=== PATIENT | female | born 1960 | race Caucasian/White ===

== ENCOUNTER 2016-09-21 14:59 | Observation (INO) | payer BC ==
[2016-09-21] MEDS ORDERED: MECLIZINE 12.5 MG TAB PO STA (15:53)
[2016-09-21] MEDS ORDERED: DIAZEPAM 5 MG/ML 2 ML SYRINGE IVP STA (15:53)
[2016-09-21] MEDS ORDERED: SODIUM CHLORIDE 0.9% 500 ML IV STA (15:53)
[2016-09-21] MEDS ORDERED: KETOROLAC 30 MG/ML 1 ML VIAL IVP STA (15:54)
--- NOTE | 2016-09-21 16:22 | ED ---
General Adult HPI - General Chief complaint: Headache Stated complaint: headache/dizzy/high blood pressure Time Seen by Provider: 09/21/16 15:44 Source: patient, RN notes reviewed Mode of arrival: ambulatory Limitations: no limitations - History of Present Illness Initial comments: this a 55-year-old female presents emergency Department chief complaint headache , dizziness, elevated blood pressure. Patient states started earlier today with a generalized headache and felt dizzy. Patient states she's had, dizzy spells past has been told that she has vertigo. Patient states today she no symptoms worsen worse with movement and she felt that she may pass out. Patient states that she was at work so checked her blood pressure and it was elevated 170-180 systolic. Patient states that she is better at rest. Patient states that she's had problems with dizziness and has been found to have a low heart rate. 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 Patient denies any chest pain or shortness breath this time. Denies any nausea vomiting. Denies any focal weakness. - Related Data Home Medications Medication Instructions Recorded Confirmed Citalopram Hydrobromide [CeleXA] 20 mg PO HS 09/21/16 09/21/16 clonazePAM [KlonoPIN] 0.25 mg PO HS 09/21/16 09/21/16 Allergies Allergy/AdvReac Type Severity Reaction Status Date / Time No Known Allergies Allergy Verified 09/21/16 15:44 Review of Systems ROS Statement: Those systems with pertinent positive or pertinent negative responses have been documented in the HPI. ROS Other: All systems not noted in ROS Statement are negative. Past Medical History Additional Past Medical History / Comment(s): vertigo Past Surgical History: Back Surgery, Cholecystectomy Additional Past Surgical History / Comment(s): neck surgery Past Psychological History: Anxiety General Exam Limitations: no limitations General appearance: alert, in no apparent distress Head exam: Present: atraumatic, normocephalic, normal inspection Eye exam: Present: normal appearance, PERRL, EOMI. Absent: scleral icterus, conjunctival injection, periorbital swelling ENT exam: Present: normal exam, normal oropharynx, mucous membranes moist Neck exam: Present: normal inspection, full ROM. Absent: tenderness, meningismus, lymphadenopathy Respiratory exam: Present: normal lung sounds bilaterally. Absent: respiratory distress, wheezes, rales, rhonchi, stridor Cardiovascular Exam: Present: normal rhythm, bradycardia, normal heart sounds. Absent: systolic murmur, diastolic murmur, rubs, gallop, clicks Neurological exam: Present: alert, oriented X3, CN II-XII intact, reflexes normal. Absent: motor sensory deficit Skin exam: Present: warm, dry, intact, normal color. Absent: rash Course Vital Signs 09/21/16 09/21/16 15:16 16:40 Temperature 99.0 F Pulse Rate 52 L 47 L Respiratory 16 17 Rate Blood Pressure 169/81 147/78 O2 Sat by Pulse 98 96 Oximetry Medical Decision Making - Lab Data Result diagrams: 09/21/16 16:28 09/21/16 16:28 Lab Results 09/21/16 09/21/16 09/21/16 Range/Units 16:28 16:28 16:28 WBC 4.7 (3.8-10.6) k/uL RBC 4.28 (3.80-5.40) m/uL Hgb 13.0 (11.4-16.0) gm/dL Hct 38.3 (34.0-46.0) % MCV 89.6 (80.0-100.0) fL MCH 30.4 (25.0-35.0) pg MCHC 33.9 (31.0-37.0) g/dL RDW 12.9 (11.5-15.5) % Plt Count 193 (150-450) k/uL Neutrophils % 53 % Lymphocytes % 35 % Monocytes % 5 % Eosinophils % 2 % Basophils % 1 % Neutrophils # 2.5 (1.3-7.7) k/uL Lymphocytes # 1.7 (1.0-4.8) k/uL Monocytes # 0.3 (0-1.0) k/uL Eosinophils # 0.1 (0-0.7) k/uL Basophils # 0.0 (0-0.2) k/uL Sodium 141 (137-145) mmol/L Potassium 4.0 (3.5-5.1) mmol/L Chloride 107 (98-107) mmol/L Carbon Dioxide 26 (22-30) mmol/L Anion Gap 8 mmol/L BUN 14 (7-17) mg/dL Creatinine 0.79 (0.52-1.04) mg/dL Est GFR (MDRD) Af Amer >60 (>60 ml/min/1.73 sqM) Est GFR (MDRD) Non-Af >60 (>60 ml/min/1.73 sqM) Glucose 82 (74-99) mg/dL Calcium 9.0 (8.4-10.2) mg/dL Total Bilirubin 1.5 H (0.2-1.3) mg/dL AST 26 (14-36) U/L ALT 35 (9-52) U/L Alkaline Phosphatase 47 (38-126) U/L Troponin I <0.012 (0.000-0.034) ng/mL Total Protein 6.9 (6.3-8.2) g/dL Albumin 4.3 (3.5-5.0) g/dL Disposition Clinical Impression: Symptomatic bradycardia, Dizziness, Near syncope Disposition: ADMITTED IP TO THIS HOSP Condition: Fair Referrals: Chrissie Castillo MD [Primary Care Provider] - 1-2 days
[2016-09-21 16:49] LABS: Basophils % (A) 1 %; CH 29.9; CHCM 33.5; Eosinophils # (A) 0.1 k/uL (0-0.7); Eosinophils % (A) 2 %; HCT 38.3 % (34.0-46.0); HDW 2.31; Luc # (Auto) 0.16; Luc % (Auto) 4; Lymphocytes # (A) 1.7 k/uL (1.0-4.8); Lymphocytes % (A) 35 %; MCH 30.4 pg (25.0-35.0); MCHC 33.9 g/dL (31.0-37.0); MCV 89.6 fL (80.0-100.0); Mean Platelet Volume 8.2; Monocytes # (A) 0.3 k/uL (0-1.0); Monocytes % (A) 5 %; Neutrophils # (A) 2.5 k/uL (1.3-7.7); Neutrophils % (A) 53 %; RBC 4.28 m/uL (3.80-5.40); RDW 12.9 % (11.5-15.5); WBC 4.7 k/uL (3.8-10.6); WBC (Perox) 4.47
[2016-09-21 16:53] LABS: ALT 35 U/L (9-52); AST 26 U/L (14-36); Alkaline Phosphatase 47 U/L (38-126); Anion Gap 8 mmol/L; Blood Urea Nitrogen 14 mg/dL (7-17); Carbon Dioxide 26 mmol/L (22-30); Chloride 107 mmol/L (98-107); Glucose 82 mg/dL (74-99); Non-African American GFR(MDRD) >60 (>60 ml/min/1.73 sqM); Sodium 141 mmol/L (137-145); Total Bilirubin 1.5 mg/dL (0.2-1.3); Total Protein 6.9 g/dL (6.3-8.2)
--- NOTE | 2016-09-21 17:14 | CT ---
EXAMINATION TYPE: CT brain wo con DATE OF EXAM: 09/21/2016 COMPARISON: NONE HISTORY: Headache CT DLP: mGycm Automated exposure control for dose reduction was used. FINDINGS: Ventricles of normal size. There is no mass effect nor midline shift. There is no sign of intracrania l hemorrhage. The calvarium is intact. IMPRESSION: NORMAL UNENHANCED HEAD CT SCAN.
[2016-09-21] MEDS ORDERED: NALOXONE 0.4 MG/ML 1 ML VIAL IV PRN (17:39)
[2016-09-21] MEDS: clonazePAM 0.5 MG TAB PO SCH (22:57)
[2016-09-21] MEDS: CITALOPRAM HYDROBROMIDE 20 MG TAB PO SCH (23:18)
[2016-09-21] MEDS: SODIUM CHLORIDE 0.9% 1,000 ML IV SCH (23:19)
[2016-09-21] MEDS ORDERED: TEMAZEPAM 15 MG CAP PO PRN (23:20)
[2016-09-21] MEDS ORDERED: ALPRAZolam 0.25 MG TAB PO PRN (23:20)
[2016-09-21] MEDS ORDERED: hydrALAZINE HCL 20 MG/ML 1 ML VIAL IVP PRN (23:22)
[2016-09-22] MEDS ORDERED: MECLIZINE 12.5 MG TAB PO PRN (05:28)
[2016-09-22 06:21] LABS: Basophils # (A) 0.1 k/uL (0-0.2); Basophils % (A) 1 %; CH 30.2; CHCM 32.7; Eosinophils # (A) 0.1 k/uL (0-0.7); Eosinophils % (A) 4 %; HDW 2.28; HGB 12.7 gm/dL (11.4-16.0); Luc # (Auto) 0.12; Luc % (Auto) 3; Lymphocytes # (A) 1.5 k/uL (1.0-4.8); Lymphocytes % (A) 41 %; MCH 30.2 pg (25.0-35.0); MCHC 32.5 g/dL (31.0-37.0); MCV 92.8 fL (80.0-100.0); Mean Platelet Volume 8.6; Monocytes # (A) 0.3 k/uL (0-1.0); Monocytes % (A) 7 %; Neutrophils # (A) 1.6 k/uL (1.3-7.7); Neutrophils % (A) 43 %; RDW 13.4 % (11.5-15.5); WBC 3.7 k/uL (3.8-10.6); WBC (Perox) 3.79
[2016-09-22] MEDS: LISINOPRIL 10 MG TAB PO SCH ×3 (06:25→20:14)
[2016-09-22] MEDS: PANTOPRAZOLE 40 MG TABLET PO SCH (06:29)
[2016-09-22 06:34] LABS: Anion Gap 5 mmol/L; Blood Urea Nitrogen 14 mg/dL (7-17); Calcium 8.7 mg/dL (8.4-10.2); Carbon Dioxide 28 mmol/L (22-30); Chloride 110 mmol/L (98-107); Cholesterol 130 mg/dL (<200); Glucose 87 mg/dL (74-99); HDL Cholesterol 61 mg/dL (40-60); Non-African American GFR(MDRD) >60 (>60 ml/min/1.73 sqM); Potassium 4.4 mmol/L (3.5-5.1); Sodium 143 mmol/L (137-145)
--- NOTE | 2016-09-22 06:59 | XR ---
EXAMINATION TYPE: XR chest 2V DATE OF EXAM: 09/22/2016 HISTORY: syncope. REFERENCE: NONE. FINDINGS: The lungs are overinflated. There is interstitial change throughout the lungs. The heart is not enlarged. Pleural spaces are abbi r. Note is made of a previous ACDF in the lower cervical spine. IMPRESSION: 1. COPD. 2. INTERSTITIAL LUNG DISEASE. 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
[2016-09-22] MEDS: HEPARIN SODIUM,PORCINE 5,000 UNIT/ML 1 ML VIAL SQ SCH ×2 (08:28→20:13)
--- NOTE | 2016-09-22 09:14 | P.CRDCN ---
History of Present Illness Consult date: 09/22/16 Chief complaint: Dizziness and lightheadedness History of present illness: This is a pleasant 55-year-old female patient with no significant past medical history resented to the emergency room complaining of dizziness and lightheadedness. Over the last several days she has been feeling tired and fatigued. Yesterday she was experiencing dizziness and lightheadedness without syncope. She did not have any chest pain or discomfort but she has been complaining of exertional shortness of breath. She was seen in the office a few days ago by Dr. Vidales who requested the patient to have a stress test and echocardiogram. In the ER the heart rate has been in the 30s. Earlier this morning she had an episode of sinus bradycardia with heart rate in the 30s as well. The patient is not aware of any prior cardiac history nor diabetes or hypertension or dyslipidemia. 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 History of Any Multi-Drug Resistant Organisms: None Reported Past Surgical History: Back Surgery, Cholecystectomy Additional Past Surgical History / Comment(s): neck FUSION HAS PLATE, BACK SX- LAMINECTOMY/FUSION, COLONOSCOPY Past Anesthesia/Blood Transfusion Reactions: No Reported Reaction Smoking Status: Former smoker - Past Family History Mother Family Medical History: Cancer Additional Family Medical History / Comment(s): BREAST CANCER Father Family Medical History: Cancer, Diabetes Mellitus, Hypertension Additional Family Medical History / Comment(s): MELANOMA Medications and Allergies Home Medications Medication Instructions Recorded Confirmed Type Citalopram Hydrobromide [CeleXA] 20 mg PO HS 09/21/16 09/21/16 History clonazePAM [KlonoPIN] 0.25 mg PO HS 09/21/16 09/21/16 History Allergies Allergy/AdvReac Type Severity Reaction Status Date / Time No Known Allergies Allergy Verified 09/21/16 15:44 Physical Exam Vitals: Vital Signs Temp Pulse Pulse Pulse Resp BP BP 09/22/16 08:29 40 L 40 L 16 120/72 09/22/16 04:00 96.6 F L 44 L 16 163/69 09/22/16 00:00 96.9 F L 48 L 16 116/58 09/21/16 19:30 96.9 F L 43 L 43 L 16 147/79 09/21/16 19:20 99.0 F 45 L 18 166/81 09/21/16 18:42 45 L 18 166/81 09/21/16 18:35 45 L 18 166/81 09/21/16 16:40 47 L 17 147/78 09/21/16 15:16 99.0 F 52 L 16 169/81 BP BP Pulse Ox 09/22/16 08:29 96 09/22/16 04:00 97 09/22/16 00:00 96 09/21/16 19:30 142/72 160/75 96 09/21/16 19:20 99 09/21/16 18:42 99 09/21/16 18:35 99 09/21/16 16:40 96 09/21/16 15:16 98 Intake and Output 09/21/16 09/22/16 09/22/16 22:59 06:59 14:59 Other: Weight 81.647 kg 81.647 kg - Constitutional General appearance: no acute distress - Respiratory Respiratory: bilateral: CTA - Cardiovascular Rhythm: regular Heart sounds: normal: S1, S2 Results 09/22/16 06:04 09/22/16 06:04 Cardiac Enzymes 09/21/16 09/21/16 Range/Units 16:28 16:28 AST 26 (14-36) U/L Troponin I <0.012 (0.000-0.034) ng/mL Lipids 09/22/16 Range/Units 06:04 Triglycerides 52 (<150) mg/dL Cholesterol 130 (<200) mg/dL HDL Cholesterol 61 H (40-60) mg/dL CBC 09/21/16 09/22/16 Range/Units 16:28 06:04 WBC 4.7 3.7 L (3.8-10.6) k/uL RBC 4.28 4.20 (3.80-5.40) m/uL Hgb 13.0 12.7 (11.4-16.0) gm/dL Hct 38.3 39.0 (34.0-46.0) % Plt Count 193 171 (150-450) k/uL Comprehensive Metabolic Panel 09/21/16 09/22/16 Range/Units 16:28 06:04 Sodium 141 143 (137-145) mmol/L Potassium 4.0 4.4 (3.5-5.1) mmol/L Chloride 107 110 H (98-107) mmol/L Carbon Dioxide 26 28 (22-30) mmol/L BUN 14 14 (7-17) mg/dL Creatinine 0.79 0.85 (0.52-1.04) mg/dL Glucose 82 87 (74-99) mg/dL Calcium 9.0 8.7 (8.4-10.2) mg/dL AST 26 (14-36) U/L ALT 35 (9-52) U/L Alkaline Phosphatase 47 (38-126) U/L Total Protein 6.9 (6.3-8.2) g/dL Albumin 4.3 (3.5-5.0) g/dL Current Medications Generic Name Dose Route Start Last Admin Trade Name Freq PRN Reason Stop Dose Admin Alprazolam 0.25 mg 09/21/16 23:20 Xanax PO TID PRN Anxiety Amlodipine Besylate 2.5 mg 09/23/16 09:00 Norvasc PO DAILY TEVIN Citalopram Hydrobromide 20 mg 09/21/16 22:15 09/21/16 23:18 Celexa PO 20 mg HS TEVIN Administration Clonazepam 0.25 mg 09/21/16 22:00 09/21/16 22:57 Klonopin PO 0.25 mg HS TEVIN Administration Heparin Sodium (Porcine) 5,000 unit 09/22/16 09:00 09/22/16 08:28 Heparin SQ 5,000 unit Q12HR TEVIN Administration Hydralazine HCl 10 mg 09/21/16 23:22 Apresoline IVP Q4HR PRN Blood Pressure - High Sodium Chloride 1,000 mls @ 50 mls/hr 09/21/16 18:45 09/21/16 23:19 Saline 0.9% IV 50 mls/hr .Q20H TEVIN Administration Lisinopril 10 mg 09/21/16 23:30 09/22/16 08:28 Zestril PO 10 mg BID TEVIN Administration Meclizine HCl 12.5 mg 09/22/16 05:28 Antivert PO TID PRN Vertigo Naloxone HCl 0.2 mg 09/21/16 17:39 Narcan IV Q2M PRN Opioid Reversal Pantoprazole Sodium 40 mg 09/22/16 07:30 09/22/16 06:29 Protonix PO 40 mg [id number] TEVIN Administration Temazepam 15 mg 09/21/16 23:20 Restoril PO HS PRN Insomnia Intake and Output 09/21/16 09/22/16 09/22/16 22:59 06:59 14:59 Other: Weight 81.647 kg 81.647 kg 09/22/16 06:04 09/22/16 06:04 Assessment and Plan Plan: Assessment Sinus bradycardia Abnormal EKG with nonspecific changes Hypertension Dizziness and lightheadedness Plan Start the patient on Norvasc Obtain an echocardiogram was Doppler Follow-up with serial cardiac enzymes Follow-up with the patient
[2016-09-22] MEDS ORDERED: ACETAMINOPHEN TAB 325 MG TAB PO PRN (13:33)
--- NOTE | 2016-09-22 14:05 | PN ---
DATE OF SERVICE: 09/21/2016 CHIEF COMPLIANT: Dizziness, headache and high blood pressure. HISTORY OF PRESENT ILLNESS: This 55-year-old woman with a past medical history of multiple medical problems, sleep apnea, history of vertigo, history of back surgery, history of DJD, history of anxiety and depression, being followed by Dr. Castillo in the outpatient setting. Had dizziness and lightheadedness at work and blood pressure was found to be 170 and 185 systolic and the patient taken to [facility] and admitted for further evaluation and treatment. The patient also had generalized headache. The patient did not have a syncopal episode. The patient also found to have a low heart rate. The heart rate was found to be in the 40s and 50s and the EKG done in the ER showed sinus bradycardia with some ST-T changes and UA. The CAT scan of the brain showed no acute changes. There is no history of fever or rigors. No history of chest pain or palpitation. PAST MEDICAL HISTORY: History of sleep apnea, vertigo, anxiety, depression, DJD. MEDICATIONS PRIOR TO ADMISSION: Include Klonopin 0.5 mg q.h.s., Celexa 20 mg p.o. ALLERGIES: None. FAMILY HISTORY: History of breast cancer. SOCIAL HISTORY: Previous history of smoking. No alcohol intake. REVIEW OF SYSTEMS: ENT: No diminished hearing or vision. CARDIOVASCULAR: No angina or palpitation. RESPIRATORY: No cough.. GI: No nausea. : No dysuria. NERVOUS SYSTEM: As mentioned earlier.. IMMUNOLOGY/ALLERGY: No asthma, hayfever. MUSCULOSKELETAL: As mentioned earlier. HEMATOLOGY: No history of anemia. ENDOCRINE: No history of diabetes or hypothyroidism. CONSTITUTIONAL: As mentioned earlier. PSYCHIATRIC: As mentioned earlier. PHYSICAL EXAMINATION: Alert and oriented x3. Pulse 47, blood pressure noted, respiratory rate 17, temperature 98 degrees, pulse ox 90% on 2 liters. HEENT: Conjunctivae normal. Oral mucosa moist. NECK: No jugular venous distention. No thyroid enlargement, no lymph node enlargement. CARDIOVASCULAR: S1/.S2. RESPIRATIONS: Diminished breath sounds at the bases. No rhonchi, no crackles. ABDOMEN: Soft, nontender. No mass palpable. LEGS: No edema, no swelling. NERVOUS SYSTEM: Higher function as mentioned. Moves all four limbs. No focal weakness. LYMPHATICS. No lymph node palpable in neck or axillae. SKIN: No rash. LABS: Show CBC within normal limits. Bilirubin is 1.5. ASSESSMENT: 1. Headache and dizziness with accelerated hypertension with hypertensive urgency. 2. Sinus bradycardia. 3. Anxiety and depression. 4. Sleep apnea. 5. History of vertigo. 6. History of cholecystectomy. RECOMMENDATIONS AND DISCUSSION: In this 55-year-old who presented with multiple complex medical issues, will monitor closely, continue current medication, continue to monitor, continue symptomatic treatment. Will use p.r.n. medications and continue to monitor. Otherwise, cardiology consultation. Guarded prognosis because of multiple complex medical issues. Further recommendations to follow. Will initiate lisinopril and continue to monitor. MTDD
[2016-09-22 17:01] LABS: Appearance,Urine Clear (Clear); Bilirubin,Urine Negative (Negative); Glucose,Urine (UA) Negative (Negative); Ketones,Urine Negative (Negative); Leukocyte Esterase,Urine Negative (Negative); Nitrite,Urine Negative (Negative); Protein,Urine Negative (Negative); Specific Gravity,Urine 1.005 (1.001-1.035); UA Billing (MACRO vs. MICRO) CHEM; Urobilinogen,Urine <2.0 mg/dL (<2.0)
[2016-09-22] MEDS: SODIUM CHLORIDE 0.9% 1,000 ML IV SCH (18:17)
[2016-09-22] MEDS: CITALOPRAM HYDROBROMIDE 20 MG TAB PO SCH (20:14)
[2016-09-22] MEDS: clonazePAM 0.5 MG TAB PO SCH (20:14)
[2016-09-23] MEDS: PANTOPRAZOLE 40 MG TABLET PO SCH (06:35)
--- NOTE | 2016-09-23 09:42 | PN ---
DATE OF SERVICE: 09/22/2016 This 55-year-old woman who was admitted with headache, bradycardia and hypertension is being closely monitored. No chest pain, no palpitation, no fever. The EKG shows sinus rhythm. Cardiology following the patient closely. On exam, alert and oriented x3. Pulse 39, blood pressure 147/70, respirations 16, temperature normal, pulse ox 97% on room air. HEENT: Conjunctivae normal. NECK: No JVD. CARDIOVASCULAR: S1/S2. RESPIRATORY: Diminished breath sounds especially in the bases. No rhonchi, no crackles. ABDOMEN: Soft, nontender. LEGS: No edema. NERVOUS SYSTEM: No focal deficits. LABS: Troponins are normal. TSH 2.260 normal. WBC 3.7. ASSESSMENT: 1. Headache associated with accelerated hypertension with hypertensive urgency. 2. Sinus bradycardia. 3. Anxiety and depression, not otherwise specified. 4. History of sleep apnea. 5. History of vertigo. 6. History of cholecystectomy. RECOMMENDATIONS AND DISCUSSION: Recommend to continue current medication, continue to monitor, continue symptomatic treatment. Otherwise, at this time I would recommend follow the patient closely. Norvasc has been added to the current regimen. The patient is still bradycardic but the blood pressure seems to be under control. Further recommendations to follow. MTDD
[2016-09-23 10:35] VITALS: RESP 16
[2016-09-23] MEDS: HEPARIN SODIUM,PORCINE 5,000 UNIT/ML 1 ML VIAL SQ SCH ×2 (10:36→21:21)
[2016-09-23] MEDS: amLODIPine 2.5 MG TAB PO SCH (10:36)
[2016-09-23] MEDS: LISINOPRIL 5 MG TAB PO SCH ×2 (10:36→21:21)
--- NOTE | 2016-09-23 13:34 | P.PN ---
Subjective Principal diagnosis: Sinus bradycardia This is a pleasant 55-year-old female patient with no significant past medical history resented to the emergency room complaining of dizziness and lightheadedness. Over the last several days she has been feeling tired and fatigued. Yesterday she was experiencing dizziness and lightheadedness without syncope. She did not have any chest pain or discomfort but she has been complaining of exertional shortness of breath. In the ER the heart rate has been in the 30s. The patient continues to have a resting heart rate in the 40s and earlier this morning was in the 30s. An echocardiogram was ordered and still pending. We'll follow-up with that. If the patient's heart rate did not recover she might need to have permanent pacemaker implantation. Objective - Vital Signs Vital signs: Vital Signs Temp 97.6 F 09/23/16 09:00 Pulse 36 L 09/23/16 12:00 Resp 16 09/23/16 12:00 BP 125/69 09/23/16 12:00 Pulse Ox 98 09/23/16 12:00 Intake & Output 09/22/16 09/23/16 09/23/16 18:59 06:59 18:59 Intake Total 1654 700 Output Total 750 Balance 1654 -750 700 Weight 85 kg Intake: Intake, IV Titration 200 Amount Sodium Chloride 0.9% 1, 200 000 ml @ 50 mls/hr IV . Q20H TEVIN Rx#:[id number] Oral 1454 700 Output: Urine 750 Other: # Voids 1 1 2 - Constitutional General appearance: Present: no acute distress - Respiratory Respiratory: bilateral: CTA - Cardiovascular Rhythm: regular Heart sounds: normal: S1, S2 - Labs CBC & Chem 7: 09/22/16 06:04 09/22/16 06:04 Assessment and Plan Plan: This is a pleasant 55-year-old female patient was admitted to the hospital with symptomatic sinus bradycardia. We'll continue monitor the heart rate for additional 24 hours. Follow-up with the echocardiogram. And follow-up with the patient.
--- NOTE | 2016-09-23 13:57 | ECHOF ---
Referral Reason:bradycardia MEASUREMENTS -------- HEIGHT: 175.3 cm WEIGHT: 81.7 kg BP: 120/72 RVIDd: 3.2 cm (< 3.3) IVSd: 0.8 cm (0.6 - 1.1) LVIDd: 5.4 cm (3.9 - 5.3) LVPWd: 0.9 cm (0.6 - 1.1) IVSs: 1.3 cm LVIDs: 3.3 cm LVPWs: 1.3 cm LAESV Index (A-L): 24.98 ml/m Ao Diam: 3.1 cm (2.0 - 3.7) AV Cusp: 1.8 cm (1.5 - 2.6) LA Diam: 3.5 cm (2.7 - 3.8) MV EXCURSION: 15.965 mm (> 18.000) MV EF SLOPE: 105 mm/s (70 - 150) EPSS: 0.6 cm MV E Cornelius: 1.24 m/s MV DecT: 234 ms MV A Cornelius: 0.99 m/s MV E/A Ratio: 1.24 RAP: 5.00 mmHg RVSP: 44.17 mmHg FINDINGS -------- Resting bradycardia (HR<60bpm). This was a technically adequate study. Overall left ventricular systolic function is normal with, an EF between 60 - 65 %. The right ventricle is normal in size and function. Normal LA size by volume 22+/-6 ml/m2. The right atrium is normal in size. Aortic valve is trileaflet and is mildly thickened. There is no evidence of aortic regurgitation. There is no evidence of aortic stenosis. The mitral valve leaflets are mildly thickened. There is trace mitral regurgitation. Mild tricuspid regurgitation present. There is mild pulmonary hypertension. The right ventricular systolic pressure, as measured by Doppler, is 44.17mmHg. The pulmonic valve is normal. The aortic root size is normal. The inferior vena cava is mildly dilated. The pericardium is normal. There is no pericardial effusion. CONCLUSIONS -------- 1. Resting bradycardia (HR<60bpm). 2. The right ventricular systolic pressure, as measured by Doppler, is 44.17mmHg. 3. The pulmonic valve is normal. 4. The aortic root size is normal. 5. The inferior vena cava is mildly dilated. 6. There is no pericardial effusion. 7. This was a technically adequate study. 8. Overall left ventricular systolic function is normal with, an EF between 60 - 65 %. 9. Normal LA size by volume 22+/-6 ml/m2. 10. Aortic valve is trileaflet and is mildly thickened. 11. The mitral valve leaflets are mildly thickened. 12. There is trace mitral regurgitation. 13. Mild tricuspid regurgitation present. 14. There is mild pulmonary hypertension. TOWER CLEANER: Sandeep Tobin RDCS
[2016-09-23] MEDS: CITALOPRAM HYDROBROMIDE 20 MG TAB PO SCH (21:21)
[2016-09-23] MEDS: clonazePAM 0.5 MG TAB PO SCH (21:23)
[2016-09-24] MEDS: PANTOPRAZOLE 40 MG TABLET PO SCH (06:30)
[2016-09-24] MEDS: LISINOPRIL 5 MG TAB PO SCH (08:52)
[2016-09-24] MEDS: HEPARIN SODIUM,PORCINE 5,000 UNIT/ML 1 ML VIAL SQ SCH (08:52)
[2016-09-24] MEDS: amLODIPine 2.5 MG TAB PO SCH (08:52)
--- NOTE | 2016-09-24 11:39 | PN ---
DATE OF SERVICE: 09/23/2016 This 55-year-old woman was admitted with headache, and accelerated hypertension , hypertensive urgency being closely monitored. The patient had significant bradycardia also. Last night the heart rate went up to 30s, which is sinus in nature. Cardiology is following the patient closely. 2-D echo has been recommended. PHYSICAL EXAM: The patient is alert and oriented x2. The pulse is 36, blood pressure 120/65, respirations 16, temperature 97.6, pulse ox 985 on room air. HEENT: Conjunctivae normal. NECK: No jugular venous distention. CARDIOVASCULAR: S1, S2. RESPIRATORY: Breath sounds are diminished at the bases. No rhonchi, no crackles. ABDOMEN: Soft, nontender. LEGS: No edema, no swelling. NEUROLOGIC: No focal deficits. LABS: WBC 3.7, otherwise 6.1, UA noted. ASSESSMENT: 1. Headache associated with accelerated hypertension with hypertension urgency. 2. Sinus bradycardia. 3. Anxiety and depression, not otherwise specified. 4. History of sleep apnea. 5. History of vertigo. 6. History of cholecystectomy. RECOMMENDATIONS AND DISCUSSION: I recommend to continue the current medications , continue with monitoring and symptomatic treatment. Closely follow with Cardiology. Increase ambulation. Further recommendations are to follow. The blood pressure is improving at this time. MTDD
[2016-09-24 12:39] VITALS: BP 132/81; PULSE 53; TEMP 96.9
--- NOTE | 2016-09-24 16:12 | P.PN ---
Subjective Principal diagnosis: Sinus Bradycardia This is a 55-year-old female with no significant past medical history who presented to the hospital with dizziness and lightheadedness. She was found to be bradycardic. At rest her patient's heart rate stays in the 40s. She underwent a stress test today, her rate up into the 160s patient asymptomatic. On return to the stress test she was ambulating in the hallway and the heart rate consistently stayed in the 70s to 80s. Excellent chronotropic response. Echo revealed normal left ventricular systolic function. Objective - Vital Signs Vital signs: Vital Signs Temp 96.9 F L 09/24/16 12:00 Pulse 53 L 09/24/16 12:00 Resp 16 09/24/16 12:00 BP 132/81 09/24/16 12:00 Pulse Ox 95 09/24/16 12:00 Intake & Output 09/23/16 09/24/16 09/24/16 18:59 06:59 18:59 Intake Total 700 Output Total 0 Balance 700 0 Weight 83.7 kg Intake: Oral 700 Output: Urine 0 Other: # Voids 2 1 2 - Exam PHYSICAL EXAMINATION: HEENT: [Head is atraumatic, normocephalic. Pupils equal, round. Neck is supple. There is no elevated jugular venous pressure.] HEART EXAMINATION: [Heart S1, S2 normal. No murmur or gallop heard.] CHEST EXAMINATION:[ Lungs are clear to auscultation and precussion. No chest wall tenderness is noted on palpation or with deep breathing.] ABDOMEN: [ Soft, nontender. Bowel sounds are heard. No organomegaly noted]. EXTREMITIES:[ 2+ peripheral pulses with no evidence of peripheral edema and no calf tenderness noted]. NEUROLOGIC [patient is awake, alert and oriented -3.] . - Labs CBC & Chem 7: 09/22/16 06:04 09/22/16 06:04 Assessment and Plan (1) Dizziness Status: Acute (2) Near syncope Status: Acute (3) Symptomatic bradycardia Status: Acute Plan: Cardiology's perspective, patient may be able to be discharged home today. Follow-up appointment will be made in the office post discharge. DNP note has been reviewed, I agree with a documented findings and plan of care. Patient was seen and examined.
--- NOTE | 2016-09-24 16:25 | P.DS ---
Providers Date of admission: 09/21/16 17:35 Attending physician: Yassine Maria Consults: 09/21/16 17:41 Consult Physician Urgent Consulting Provider: [facility] Consult Reason/Comments: bradycardia Do you want consulting provider notified?: Yes Primary care physician: Chrissie [facility] Course: 55-year-old female who comes in the hospital with the confusion and dizziness. Patient has a diagnosis of essential hypertension depression and anxiety. Patient was admitted to the hospital was noted to have a heart rate in the 30s. Patient was symptomatic of the heart rate hence was admitted to the hospital for ongoing care Patient denies taking any any rate limiting medications. Patient states that her recent change in medications include decreasing dose of clonidine and Celexa. States that she has had a previous episode 3 years ago after her cholecystectomy where patient was observed for 24 hours for low heart rate During the hospitalization patient was monitored on the telemetry was noted to have asymptomatic bradycardia especially worse at night However at this time she was made to ambulate during the hospitalization and was able to note chronotropic Activity patient did undergo a stress test was able to read a target heart rate of 158 In the past patient apparently was being WORKED up with a Holter outpatient however it the was not completed due to some malfunction On the day of discharge at rest heart rate was approximately 60 bpm Heart S1-S2 heard no murmurs appreciated Abdomen soft nontender organomegaly Lungs diminished breath sounds no rhonchi wheezing or crackles Lower extremity is no edema noted Discharge diagnoses #1 bradycardia with the episodic symptomatic features no pauses noted does not meet criteria for pacemaker #2 accelerated hypertension #3 history of depression #4 history of anxiety #5 suspected clinical sleep apnea Plan Patient is recommended to undergo workup for sleep study considering better control of nocturnal apneic spells wouldn't improve episodes of bradycardia Decrease Celexa to 10 mg daily Patient will be discharged home in a stable condition Patient Condition at Discharge: Fair Plan - Discharge Summary New Discharge Prescriptions: New RX: amLODIPine [Norvasc] 2.5 mg PO DAILY #30 tab Citalopram Hydrobromide [CeleXA] 10 mg PO DAILY #30 tab RX: Lisinopril [Zestril] 10 mg PO BID #60 tab Continue RX: clonazePAM [KlonoPIN] 0.25 mg PO HS Discontinued RX: Citalopram Hydrobromide [CeleXA] 20 mg PO HS Discharge Medication List RX: clonazePAM [KlonoPIN] 0.25 mg PO HS 09/21/16 [History] Citalopram Hydrobromide [CeleXA] 10 mg PO DAILY #30 tab 09/24/16 [Rx] RX: Lisinopril [Zestril] 10 mg PO BID #60 tab 09/24/16 [Rx] RX: amLODIPine [Norvasc] 2.5 mg PO DAILY #30 tab 09/24/16 [Rx] Follow up Appointment(s)/Referral(s): Jeb Blackburn MD [STAFF PHYSICIAN] - 1 Week Chrissie Castillo MD [Primary Care Provider] - 10/01/16 10:15 am Levy Delgdao MD [STAFF PHYSICIAN] - 10/24/16 1:00 pm Patient Instructions/Handouts: Bradycardia (DC)
--- NOTE | 2016-09-24 17:23 | P.STRESS ---
- Stress Test Note Stress Test Results/Findings: Exam Performed: stress test Exam Date: 09/24/16 Reason for Exam: Dizzy Height: 5 ft 9 in Weight: 83.7 kg Protocol: Justin Stage: 2 Duration of Exercise: 8:30 Resting Heart Rate: 48 Resting Blood Pressure: 121/77 Maximum Achieved Heart Rate: 154 Maximum Achieved Blood Pressure: 178/87 85% PMHR: 139 100% PMHR: 164 METS: 10.3 Technologist Comment: Stress Test Results/Findings: Resting EKG shows a normal sinus rhythm with normal VT interval and QRS duration and normal ST-T days. J-point depression with upsloping ST segments are noted. Patient did not complain of any anginal pain during the test. Occasional PVCs were noted. Final impression distress EKG shows eqivocal upsloping ST segment changes not diagnostic of ischemia. Asymptomatic did not complain of any anginal pain during the test. Occasional PVCs were noted.
--- NOTE | 2016-09-25 07:49 | EST ---
Stress Test Results/Findings: Exam Performed: stress test Exam Date: 09/24/16 Reason for Exam: Dizzy Height: 5 ft 9 in Weight: 83.7 kg Protocol: Justin Stage: 2 Duration of Exercise: 8:30 Resting Heart Rate: 48 Resting Blood Pressure: 121/77 Maximum Achieved Heart Rate: 154 Maximum Achieved Blood Pressure: 178/87 85% PMHR: 139 100% PMHR: 164 METS: 10.3 Technologist Comment: Stress Test Results/Findings: Resting EKG shows a normal sinus rhythm with normal AK interval and QRS duration and normal ST-T days. J-point depression with upsloping ST segments are noted. Patient did not complain of any anginal pain during the test. Occasional PVCs were noted. Final impression distress EKG shows eqivocal upsloping ST segment changes not diagnostic of ischemia. Asymptomatic did not complain of any anginal pain during the test. Occasional PVCs were noted. MTDD
== END 2016-09-24 16:39 | disposition home or self-care (01) ==
LOC: EC 14:59 → 6SEL 17:35 → INTOOBSV 17:35
PROVIDERS: ADMIT Hospitalist; ATTEND Hospitalist
DX: R00.1 Bradycardia, unspecified (principal); I16.0 Hypertensive urgency; R55 Syncope and collapse; I10 Essential (primary) hypertension; F32.9 Major depressive disorder, single episode, unspecified; F41.9 Anxiety disorder, unspecified; R51 Headache; R01.1 Cardiac murmur, unspecified; G47.30 Sleep apnea, unspecified; R94.31 Abnormal electrocardiogram [ECG] [EKG]; Z99.89 Dependence on other enabling machines and devices; Z98.1 Arthrodesis status; Z87.891 Personal history of nicotine dependence; Z82.49 Family history of ischemic heart disease and other diseases of the circulatory system; Z79.899 Other long term (current) drug therapy; Z90.49 Acquired absence of other specified parts of digestive tract
CPT/HCPCS: 96361 ×3; 96372 ×3; 96374; 96375; 99285; 36415; 93005; 93017; 93306; 84439; 80061; 80053; 80048; 84443; 84484 ×2; 85025 ×2; 81003; 71020; 70450; G0378 ×4; J1644 ×3; J3360; J1885

== ENCOUNTER 2016-10-09 20:22 | Observation (INO) | payer BC ==
[2016-10-09 21:23] LABS: Basophils % (A) 1 %; CH 31.1; CHCM 34.1; Eosinophils # (A) 0.2 k/uL (0-0.7); Eosinophils % (A) 3 %; HCT 39.7 % (34.0-46.0); HDW 2.27; HGB 13.1 gm/dL (11.4-16.0); Luc # (Auto) 0.21; Luc % (Auto) 4; Lymphocytes # (A) 2.4 k/uL (1.0-4.8); Lymphocytes % (A) 44 %; MCH 30.1 pg (25.0-35.0); MCHC 32.9 g/dL (31.0-37.0); MCV 91.6 fL (80.0-100.0); Mean Platelet Volume 8.4; Monocytes # (A) 0.3 k/uL (0-1.0); Monocytes % (A) 6 %; Neutrophils # (A) 2.3 k/uL (1.3-7.7); Neutrophils % (A) 42 %; RBC 4.33 m/uL (3.80-5.40); RDW 13.7 % (11.5-15.5); WBC 5.4 k/uL (3.8-10.6); WBC (Perox) 5.65
[2016-10-09 21:31] LABS: Partial Thromboplastin Time 23.9 sec (22.0-30.0); Prothrombin Time 10.3 sec (9.0-12.0)
[2016-10-09 21:32] LABS: ALT 35 U/L (9-52); AST 25 U/L (14-36); Alkaline Phosphatase 60 U/L (38-126); Anion Gap 10 mmol/L; Blood Urea Nitrogen 14 mg/dL (7-17); Calcium 9.4 mg/dL (8.4-10.2); Carbon Dioxide 25 mmol/L (22-30); Chloride 106 mmol/L (98-107); Glucose 79 mg/dL (74-99); Non-African American GFR(MDRD) >60 (>60 ml/min/1.73 sqM); Potassium 3.9 mmol/L (3.5-5.1); Sodium 141 mmol/L (137-145); Total Bilirubin 0.9 mg/dL (0.2-1.3); Total Protein 7.2 g/dL (6.3-8.2)
--- NOTE | 2016-10-09 21:38 | ED ---
Dizziness HPI - General Chief Complaint: Dizziness Stated Complaint: Dizzy/Low pulse Time Seen by Provider: 10/09/16 20:41 Source: patient Mode of arrival: wheelchair Limitations: no limitations - History of Present Illness Initial Comments: This is a 56-year-old female with a history of hypertension and bradycardia presents emergency department for lightheadedness. She states that it's been going on for the last 24 hours. She feels that she is going to pass out. She has not had a syncopal episode. She was recently admitted for the same and found to have some symptomatic sinus bradycardia. She had full cardiac workup performed however was not recommended that she receive a pacemaker at that time. She states that she is follow up with per week since then and she's had her Norvasc decreased to 10 mg daily. She also had her Klonopin and Celexa decreased as well. She came in today because she was having persistent lightheadedness today. She went to an urgent care who noted sinus bradycardia and sent her here. She denies any chest pain. No nausea or vomiting. No other complaints. - Related Data Home Medications Medication Instructions Recorded Confirmed clonazePAM [KlonoPIN] 0.25 mg PO HS 09/21/16 10/09/16 Citalopram Hydrobromide [CeleXA] 10 mg PO HS 10/09/16 10/09/16 Lisinopril [Zestril] 10 mg PO QAM 10/09/16 10/09/16 amLODIPine [Norvasc] 2.5 mg PO QAM 10/09/16 10/09/16 Allergies Allergy/AdvReac Type Severity Reaction Status Date / Time No Known Allergies Allergy Verified 10/09/16 20:36 Review of Systems ROS Statement: Those systems with pertinent positive or pertinent negative responses have been documented in the HPI. ROS Other: All systems not noted in ROS Statement are negative. 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, bradycardia History of Any Multi-Drug Resistant Organisms: None Reported Past Surgical History: Back Surgery, Cholecystectomy Additional Past Surgical History / Comment(s): neck FUSION HAS PLATE, BACK SX- LAMINECTOMY/FUSION, COLONOSCOPY Past Anesthesia/Blood Transfusion Reactions: No Reported Reaction Past Psychological History: Anxiety, Depression Smoking Status: Former smoker Past Alcohol Use History: None Reported Past Drug Use History: None Reported - Past Family History Mother Family Medical History: Cancer Additional Family Medical History / Comment(s): BREAST CANCER Father Family Medical History: Cancer, Diabetes Mellitus, Hypertension Additional Family Medical History / Comment(s): MELANOMA General Exam - General Exam Comments Initial Comments: Constitutional: Awake alert Appears comfortable Head: Normocephalic atraumatic Eyes: no conjunctival injection No scleral icterus EOMI Neck: No JVD Supple Heart: Bradycardia with regular rhythm normal S1-S2 no murmurs Lungs: Clear to auscultation bilaterally No wheezing No rales Abdomen: Soft nondistended nontender Extremities: Non edematous DP pulses intact Radial pulses intact Neuro: A&Ox3 No focal neurologic deficits Psych: Appropriate mood and affect Limitations: no limitations Course Vital Signs 10/09/16 20:33 Temperature 97.5 F L Pulse Rate 49 L Respiratory 16 Rate Blood Pressure 187/90 O2 Sat by Pulse 98 Oximetry EKG Findings - EKG Comments: EKG Findings:: EKG showing sinus bradycardia with a rate of 50. No abnormal ST segment changes or T-wave inversions. QTC is 432. Other intervals are normal. No ectopy. Medical Decision Making - Medical Decision Making Is a 56-year-old female who presents emergency department for lightheadedness. She was found to be in sinus bradycardia with rates in the 30s at times. She has been persistently in the 40s. Labs are reviewed and unremarkable. Patient was recently hospitalized for this however due to her recurrent symptomatology requires monitoring in the hospital and cardiac evaluation again. Dr. Maria accepts the admission. - Lab Data Result diagrams: 10/09/16 20:50 10/09/16 20:50 Lab Results 10/09/16 10/09/16 10/09/16 Range/Units 20:50 20:50 20:50 WBC 5.4 (3.8-10.6) k/uL RBC 4.33 (3.80-5.40) m/uL Hgb 13.1 (11.4-16.0) gm/dL Hct 39.7 (34.0-46.0) % MCV 91.6 (80.0-100.0) fL MCH 30.1 (25.0-35.0) pg MCHC 32.9 (31.0-37.0) g/dL RDW 13.7 (11.5-15.5) % Plt Count 182 (150-450) k/uL Neutrophils % 42 % Lymphocytes % 44 % Monocytes % 6 % Eosinophils % 3 % Basophils % 1 % Neutrophils # 2.3 (1.3-7.7) k/uL Lymphocytes # 2.4 (1.0-4.8) k/uL Monocytes # 0.3 (0-1.0) k/uL Eosinophils # 0.2 (0-0.7) k/uL Basophils # 0.0 (0-0.2) k/uL PT 10.3 (9.0-12.0) sec INR 1.0 (<1.2) APTT 23.9 (22.0-30.0) sec Sodium (137-145) mmol/L Potassium (3.5-5.1) mmol/L Chloride (98-107) mmol/L Carbon Dioxide (22-30) mmol/L Anion Gap mmol/L BUN (7-17) mg/dL Creatinine (0.52-1.04) mg/dL Est GFR (MDRD) Af Amer (>60 ml/min/1.73 sqM) Est GFR (MDRD) Non-Af (>60 ml/min/1.73 sqM) Glucose (74-99) mg/dL Calcium (8.4-10.2) mg/dL Total Bilirubin (0.2-1.3) mg/dL AST (14-36) U/L ALT (9-52) U/L Alkaline Phosphatase (38-126) U/L CK-MB (CK-2) 1.9 (0.0-2.4) ng/mL Troponin I <0.012 (0.000-0.034) ng/mL Total Protein (6.3-8.2) g/dL Albumin (3.5-5.0) g/dL 10/09/16 Range/Units 20:50 WBC (3.8-10.6) k/uL RBC (3.80-5.40) m/uL Hgb (11.4-16.0) gm/dL Hct (34.0-46.0) % MCV (80.0-100.0) fL MCH (25.0-35.0) pg MCHC (31.0-37.0) g/dL RDW (11.5-15.5) % Plt Count (150-450) k/uL Neutrophils % % Lymphocytes % % Monocytes % % Eosinophils % % Basophils % % Neutrophils # (1.3-7.7) k/uL Lymphocytes # (1.0-4.8) k/uL Monocytes # (0-1.0) k/uL Eosinophils # (0-0.7) k/uL Basophils # (0-0.2) k/uL PT (9.0-12.0) sec INR (<1.2) APTT (22.0-30.0) sec Sodium 141 (137-145) mmol/L Potassium 3.9 (3.5-5.1) mmol/L Chloride 106 (98-107) mmol/L Carbon Dioxide 25 (22-30) mmol/L Anion Gap 10 mmol/L BUN 14 (7-17) mg/dL Creatinine 0.80 (0.52-1.04) mg/dL Est GFR (MDRD) Af Amer >60 (>60 ml/min/1.73 sqM) Est GFR (MDRD) Non-Af >60 (>60 ml/min/1.73 sqM) Glucose 79 (74-99) mg/dL Calcium 9.4 (8.4-10.2) mg/dL Total Bilirubin 0.9 (0.2-1.3) mg/dL AST 25 (14-36) U/L ALT 35 (9-52) U/L Alkaline Phosphatase 60 (38-126) U/L CK-MB (CK-2) (0.0-2.4) ng/mL Troponin I (0.000-0.034) ng/mL Total Protein 7.2 (6.3-8.2) g/dL Albumin 4.5 (3.5-5.0) g/dL Disposition Clinical Impression: Symptomatic sinus bradycardia Disposition: ADMITTED IP TO THIS HOSP Condition: Stable Referrals: Chrissie Castillo MD [Primary Care Provider] - 1-2 days
[2016-10-09 22:04] LABS: Creatine Kinase MB 1.9 ng/mL (0.0-2.4); Troponin I <0.012 ng/mL (0.000-0.034)
[2016-10-09] MEDS ORDERED: NALOXONE 0.4 MG/ML 1 ML VIAL IV PRN (22:18)
[2016-10-09] MEDS ORDERED: clonazePAM 0.5 MG TAB PO SCH (23:45)
[2016-10-10 03:58] LABS: Creatine Kinase 97 U/L (30-135)
[2016-10-10 04:09] LABS: Creatine Kinase MB 1.5 ng/mL (0.0-2.4); Troponin I <0.012 ng/mL (0.000-0.034)
[2016-10-10 07:32] VITALS: RESP 18; TEMP 97.9
--- NOTE | 2016-10-10 08:42 | P.CRDCN ---
History of Present Illness Consult date: 10/10/16 History of present illness: This is a 56-year-old female. Past medical history significant for hypertension, anxiety and depression. Patient presents with complaints of feeling lightheaded while walking around the store earlier in the day. She states she has been suffering with this off and on since August of this year. She sees Dr. VC Vidales as an outpatient. She recently, September 22, underwent an exercise stress test where she achieved 8 minutes and 30 seconds of exercise with a peak heart rate of 154 beats. She attempted to wear a groundwater monitoring technician but he kept falling off she stated and she returned to incomplete. She experiences this dizziness she states she has no associated shortness of breath , palpitations, chest pain, or vomiting. She states that she became mildly nauseous and felt flushed. She did not take her pulse at the time of this event. She came to the hospital and her heart rate was in the mid 40s. She takes her blood pressure home regularly and states typically runs in the 130s systolic. EKG done shows sinus bradycardia, rate of 50 beats per minute with no T-wave abnormality. When compared with old EKG this appears consistent. CBC was within normal limits, coagulation profile at baseline, BMP is normal. CPK and troponin are normal x 2. Most recent echo dated September 22 indicates preserved left ventricular function with an ejection fraction 60-65%, aortic valve is trileaflet and mildly thickened, mitral valve is mildly thickened, trace mitral regurgitation, mild tricuspid regurgitation and mild pulmonary hypertension with a right ventricular systolic pressure 44.17 mmHg.. Review of Systems REVIEW OF SYSTEMS: Patient denies any chest discomfort. No shortness of breath. No diaphoresis. Denies headache, dizziness, blurred vision, double vision. No dyspnea on exertion. Patient denies any stomach discomfort. No nausea, vomiting. No hematochezia. No hematemesis. Denies any black stools or blood in his stools. No syncope. No palpitations. No cough. No recent fever or chills. No muscle weakness or numbness. 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 LIVES W/ [place] IN SINGLE LEVEL HOME THAT HAS 3 PORCH STEPS TO ENTER HOME. 3 PET DOGS. NO OUTSIDE SERVICES RECIEVED. NO MEDICAL EQUIPMET. 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 Smoking Status: Former smoker Past Alcohol Use History: None Reported Additional Past Alcohol Use History / Comment(s): STARTED SMOKING AGE 16(1977) SMOKED 1 PPD. QUIT 1997 Past Drug Use History: None Reported - Past Family History Mother Family Medical History: Cancer Additional Family Medical History / Comment(s): BREAST CANCER Father Family Medical History: Cancer, Diabetes Mellitus, Hypertension Additional Family Medical History / Comment(s): MELANOMA Medications and Allergies Home Medications Medication Instructions Recorded Confirmed Type clonazePAM [KlonoPIN] 0.25 mg PO HS 09/21/16 10/09/16 History Citalopram Hydrobromide [CeleXA] 10 mg PO HS 10/09/16 10/09/16 History Lisinopril [Zestril] 10 mg PO QAM 10/09/16 10/09/16 History amLODIPine [Norvasc] 2.5 mg PO QAM 10/09/16 10/09/16 History Allergies Allergy/AdvReac Type Severity Reaction Status Date / Time No Known Allergies Allergy Verified 10/09/16 23:18 Physical Exam Vitals: Vital Signs Temp Pulse Pulse Resp BP BP Pulse Ox 10/10/16 07:28 97.9 F 45 L 18 135/75 97 10/10/16 03:12 45 L 16 10/10/16 03:10 97.3 F L 45 L 16 115/67 98 10/10/16 00:00 47 L 16 10/09/16 23:57 98.0 F 47 L 16 145/79 98 10/09/16 22:36 97.9 F 40 L 16 148/79 98 10/09/16 22:35 42 L 16 153/75 99 10/09/16 20:33 97.5 F L 49 L 16 187/90 98 Intake and Output 10/09/16 10/10/16 10/10/16 22:59 06:59 14:59 Other: Voiding Method Toilet # Voids 0 1 Weight 85.275 kg GENERAL: This is a 56-year-old female in no apparent distress at the time of my examination. HEENT: Head is atraumatic, normocephalic. Pupils are equal, round. Sclerae anicteric. Conjunctivae are clear. Mucous membranes of the mouth are moist. Neck is supple. There is no jugular venous distention. No carotid bruit is heard. LUNGS: Clear to auscultation no wheezes, rales or rhonchi. No chest wall tenderness is noted on palpation or with deep breathing. HEART: Regular rate and rhythm without murmurs, rubs or gallops. S1 and S2 heard. Heart rate 50 on telemetry at the time of my exam. ABDOMEN: Soft, nontender. Bowel sounds are heard. No organomegaly noted. EXTREMITIES: 2+ peripheral pulses with no evidence of peripheral edema and no calf tenderness noted. NEUROLOGIC: Patient is awake, alert and oriented x3. Results 10/09/16 20:50 10/09/16 20:50 Cardiac Enzymes 10/09/16 10/09/16 10/10/16 Range/Units 20:50 20:50 03:12 AST 25 (14-36) U/L CK-MB (CK-2) 1.9 1.5 (0.0-2.4) ng/mL Troponin I <0.012 <0.012 (0.000-0.034) ng/mL Coagulation 10/09/16 Range/Units 20:50 PT 10.3 (9.0-12.0) sec APTT 23.9 (22.0-30.0) sec CBC 10/09/16 Range/Units 20:50 WBC 5.4 (3.8-10.6) k/uL RBC 4.33 (3.80-5.40) m/uL Hgb 13.1 (11.4-16.0) gm/dL Hct 39.7 (34.0-46.0) % Plt Count 182 (150-450) k/uL Comprehensive Metabolic Panel 10/09/16 Range/Units 20:50 Sodium 141 (137-145) mmol/L Potassium 3.9 (3.5-5.1) mmol/L Chloride 106 (98-107) mmol/L Carbon Dioxide 25 (22-30) mmol/L BUN 14 (7-17) mg/dL Creatinine 0.80 (0.52-1.04) mg/dL Glucose 79 (74-99) mg/dL Calcium 9.4 (8.4-10.2) mg/dL AST 25 (14-36) U/L ALT 35 (9-52) U/L Alkaline Phosphatase 60 (38-126) U/L Total Protein 7.2 (6.3-8.2) g/dL Albumin 4.5 (3.5-5.0) g/dL Current Medications Generic Name Dose Route Start Last Admin Trade Name Freq PRN Reason Stop Dose Admin Clonazepam 0.25 mg 10/09/16 23:45 10/09/16 23:47 Klonopin PO 0.25 mg HS TEVIN Administration Naloxone HCl 0.2 mg 10/09/16 22:18 Narcan IV Q2M PRN Opioid Reversal Intake and Output 10/09/16 10/10/16 10/10/16 22:59 06:59 14:59 Other: Voiding Method Toilet # Voids 0 1 Weight 85.275 kg 10/09/16 20:50 10/09/16 20:50 EKG Interpretations (text) EKG indicates sinus bradycardia at a rate of [address] abnormality. Assessment and Plan Plan: ASSESSMENT 1. Bradycardia with associated lightheadedness. PLAN Without documentation it is difficult to say whether this lightheadedness is associated with the patient's bradycardia. A 30 day event monitor will be attempted; results sent to Dr. VC Vidales. Pt to see Dr. Vidales in 2 weeks for follow-up. Patient is to continue her current antihypertensives without a change in the dosage. She is recommended to continue checking her blood pressure daily as well as her pulse. Especially when she is having an episode of lightheadedness. Nurse Practitioner note has been reviewed, I agree with a documented findings and plan of care. Patient was seen and examined.
[2016-10-10 10:05] LABS: Creatine Kinase 93 U/L (30-135)
[2016-10-10 10:16] LABS: Creatine Kinase MB 1.4 ng/mL (0.0-2.4); Troponin I <0.012 ng/mL (0.000-0.034)
[2016-10-10 11:31] VITALS: BP 175/83; PULSE 62
[2016-10-10] MEDS ORDERED: amLODIPine 2.5 MG TAB PO STA (12:06)
--- NOTE | 2016-10-10 14:42 | P.HPIM ---
History of Present Illness H&P Date: 10/10/16 (dc summary as well) Chief Complaint: dizzy This is a 56 year old female that was recently seen on our service for complaints of lightheadedness. Patient at that time was noted to be bradycardic without rate limiting medications. ECHO did not reveal any abnormalities. EF was noted to be 55-60%. Patient was undergoing workup with the holter monitor prior to that however it failed due to some techinical issues. Patient was discharged with the plan to be set upw ith Holter monitor again. Patient returns to the hospital with isolated incidence of lightheadedness. It is currenlty resolved. denies HAs chest Pain dizziness, nausea, vomiting, diarrhea. Tele monitor revealed HR between 35-60. Patient at this time is asymptomatic. suspicion for clinical lianne Review of Systems All systems: negative (noted in hpi) 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, DOESN'T USE CPAP MACHINE, bradycardia History of Any Multi-Drug Resistant Organisms: None Reported Past Surgical History: Back Surgery, Cholecystectomy Additional Past Surgical History / Comment(s): neck FUSION HAS PLATE, BACK SX- LAMINECTOMY/FUSION, COLONOSCOPY Past Anesthesia/Blood Transfusion Reactions: No Reported Reaction Past Psychological History: Anxiety Additional Psychological History / Comment(s): 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 LIVES W/ [place] IN SINGLE LEVEL HOME THAT HAS 3 PORCH STEPS TO ENTER HOME. 3 PET DOGS. NO OUTSIDE SERVICES RECIEVED. NO MEDICAL EQUIPMET. 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 Smoking Status: Former smoker Past Alcohol Use History: None Reported Additional Past Alcohol Use History / Comment(s): STARTED SMOKING AGE 16(1977) SMOKED 1 PPD. QUIT 1997 Past Drug Use History: None Reported - Past Family History Mother Family Medical History: Cancer Additional Family Medical History / Comment(s): BREAST CANCER Father Family Medical History: Cancer, Diabetes Mellitus, Hypertension Additional Family Medical History / Comment(s): MELANOMA Medications and Allergies Home Medications Medication Instructions Recorded Confirmed Type clonazePAM [KlonoPIN] 0.25 mg PO HS 09/21/16 10/09/16 History Citalopram Hydrobromide [CeleXA] 10 mg PO HS 10/09/16 10/09/16 History Lisinopril [Zestril] 10 mg PO QAM 10/09/16 10/09/16 History amLODIPine [Norvasc] 2.5 mg PO QAM 10/09/16 10/09/16 History Allergies Allergy/AdvReac Type Severity Reaction Status Date / Time No Known Allergies Allergy Verified 10/09/16 23:18 Physical Exam Vitals: Vital Signs Temp Pulse Pulse Resp BP BP BP 10/10/16 12:00 62 18 10/10/16 11:29 97.9 F 62 18 175/83 10/10/16 08:00 45 L 18 10/10/16 07:28 97.9 F 45 L 18 135/75 10/10/16 03:12 45 L 16 10/10/16 03:10 97.3 F L 45 L 16 115/67 10/10/16 00:00 47 L 16 10/09/16 23:57 98.0 F 47 L 16 145/79 10/09/16 22:36 97.9 F 40 L 16 148/79 10/09/16 22:35 42 L 16 153/75 10/09/16 20:33 97.5 F L 49 L 16 187/90 Pulse Ox 10/10/16 12:00 10/10/16 11:29 97 10/10/16 08:00 10/10/16 07:28 97 10/10/16 03:12 10/10/16 03:10 98 10/10/16 00:00 10/09/16 23:57 98 10/09/16 22:36 98 10/09/16 22:35 99 10/09/16 20:33 98 Intake and Output 10/09/16 10/10/16 10/10/16 22:59 06:59 14:59 Other: Voiding Method Toilet Toilet # Voids 0 1 Weight 85.275 kg - Constitutional General appearance: no acute distress - EENT Eyes: EOMI, PERRLA - Respiratory Respiratory: bilateral: CTA, negative: diminished, dullness, rales, rhonchi - Cardiovascular Heart sounds: normal: S1, S2 (bradycardic) - Gastrointestinal General gastrointestinal: normal bowel sounds, no organomegaly, soft - Integumentary Integumentary: normal - Neurologic Neurologic: CNII-XII intact - Psychiatric Psychiatric: A&O x's 3 Results CBC & Chem 7: 08/22/17 20:50 10/09/16 20:50 Thrombosis Risk Factor Assmnt - Choose All That Apply Any of the Below Risk Factors Present?: Yes Each Factor Represents 1 point: Age 41-60 years, Obesity (BMI >25) Other Risk Factors: No Other congenital or acquired thrombophilia - If yes, enter type in comment: No Thrombosis Risk Factor Assessment Total Risk Factor Score: 2 Thrombosis Risk Factor Assessment Level: Low Risk Assessment and Plan Plan: Asymptomatic bradycardia presyncope HTN anxiety clinical lianne Plan Holter moniter good chronotropic activity dc home fall precautions were discussed pt had sleep study setup
== END 2016-10-10 13:43 | disposition home or self-care (01) ==
LOC: EC 20:22 → 3OBS 22:18
PROVIDERS: ADMIT Hospitalist; ATTEND Hospitalist
DX: R00.1 Bradycardia, unspecified (principal); R42 Dizziness and giddiness; R11.0 Nausea; R55 Syncope and collapse; I10 Essential (primary) hypertension; G47.33 Obstructive sleep apnea (adult) (pediatric); E66.9 Obesity, unspecified; Z68.27 Body mass index [BMI] 27.0-27.9, adult; F32.9 Major depressive disorder, single episode, unspecified; F41.9 Anxiety disorder, unspecified; Z79.899 Other long term (current) drug therapy; Z98.1 Arthrodesis status; Z87.891 Personal history of nicotine dependence; Z80.3 Family history of malignant neoplasm of breast; Z83.3 Family history of diabetes mellitus; Z80.8 Family history of malignant neoplasm of other organs or systems
CPT/HCPCS: 99285; 36415; 93005; 93270; 93271; 80053; 82550; 82553 ×2; 84484 ×2; 85025; 85610; 85730; G0378 ×2

== ENCOUNTER 2016-11-26 11:42 | Day surgery (SDC) | payer BC ==
[2016-11-21 10:34] VITALS: BMI 27.6
[~2016-11-26 11:42] MED LIST: ceFAZolin 1,000 MG in SODIUM CHLORIDE 0.9% IRRIGATIO 250 ML IRRIGATION ONE; ceFAZolin 2 GM in SODIUM CHLORIDE 0.9% 100 ML IVPB ONE
[2016-11-26] MEDS ORDERED: SODIUM CHLORIDE 0.9% 1,000 ML IV ONE (12:07)
[2016-11-26 12:45] LABS: Basophils % (A) 1 %; CH 30.5; Eosinophils # (A) 0.1 k/uL (0-0.7); Eosinophils % (A) 2 %; HCT 38.5 % (34.0-46.0); HDW 2.26; Luc % (Auto) 3; Lymphocytes # (A) 1.5 k/uL (1.0-4.8); Lymphocytes % (A) 37 %; MCH 30.5 pg (25.0-35.0); MCHC 33.7 g/dL (31.0-37.0); MCV 90.3 fL (80.0-100.0); Mean Platelet Volume 8.4; Monocytes # (A) 0.2 k/uL (0-1.0); Monocytes % (A) 6 %; Neutrophils # (A) 2.1 k/uL (1.3-7.7); Neutrophils % (A) 51 %; RBC 4.26 m/uL (3.80-5.40); RDW 13.7 % (11.5-15.5); WBC (Perox) 3.92
[2016-11-26 12:53] VITALS: RESP 18
[2016-11-26] MEDS ORDERED: LORazepam 2 MG/ML INJ IV STA (14:53)
[2016-11-26 15:07] LABS: Anion Gap 8 mmol/L; Blood Urea Nitrogen 13 mg/dL (7-17); Calcium 9.1 mg/dL (8.4-10.2); Carbon Dioxide 26 mmol/L (22-30); Chloride 106 mmol/L (98-107); Glucose 85 mg/dL (74-99); Non-African American GFR(MDRD) >60 (>60 ml/min/1.73 sqM); Sodium 140 mmol/L (137-145)
[2016-11-26 15:16] LABS: Potassium 4.4 mmol/L (3.5-5.1)
[2016-11-26] MEDS ORDERED: IOHEXOL 350 MG/ML 50ML BOTTLE INJ ONE (17:02)
[2016-11-26] MEDS ORDERED: ACETAMINOPHEN IV (For NPO) 1,000 MG in EMPTY BAG 1 BAG IVPB ONE (17:05)
[2016-11-26] MEDS ORDERED: HYDROcodone/APAP 5-325MG 1 EACH TAB PO PRN (17:05)
[2016-11-26] MEDS ORDERED: MIDAZOLAM 2 MG/2 ML VIAL ONE (17:07)
[2016-11-26] MEDS ORDERED: fentaNYL (PF) 50 MCG/ML 2 ML AMP ONE (17:07)
[2016-11-26] MEDS: fentaNYL (PF) 50 MCG/ML 2 ML AMP IV ONE ×2 (17:20→17:30)
[2016-11-26] MEDS ORDERED: LIDOCAINE 1% INJ 10MG/ML (20 ML MDV) SQ ONE ×2 (17:25→17:40)
[2016-11-26] MEDS ORDERED: MIDAZOLAM 2 MG/2 ML VIAL IV ONE (17:26)
--- NOTE | 2016-11-26 19:06 | CE ---
CARDIAC ELECTROPHYSIOLOGY REPORT Mrs. Arana is a 56-year-old female with symptomatic sick sinus syndrome, without any triggering or inciting factors. She has not on any medications either that could precipitate this. After a detailed discussion, she was brought in for dual-chamber pacemaker implantation. She is a patient of Dr. Chrissie Castillo and Dr. Slick Vidales. DESCRIPTION OF PROCEDURE: Patient was brought to the EP lab in a fasting state. Written informed consent was obtained prior to the procedure. The left shoulder area was prepped and draped as per protocol. 1% lidocaine was used for local anesthesia. A 3 cm incision was made parallel to the deltopectoral groove, about 1.5 cm medial to it. The incision was carried down to the level of the pectoralis muscle. A subfascial pocket was made. Hemostasis was assured. The left axillary vein was accessed at two separate points and via appropriately-sized introducer sheaths, two leads were positioned in the right heart. The atrial lead was [employer] MRI model #7735 45 cm in length and serial #[id number] P waves 3.2. This was positioned in right atrial appendage. This was a passive lead. Pacing threshold 0.5 V at 0.4 milliseconds, 10 V test negative. Pacing impedance 569 ohms and RV lead was positioned in the RV apex. R-waves 5.6 mV, pacing threshold 0.5 V at 0.4 milliseconds. Pacing impedance of 916 ohms. 10 V test negative. Both leads were secured to the underlying pectoralis fascia using two nonabsorbable sutures. Pocket was irrigated with antibiotic solution. Leads were connected to the generator ([employer]) MRI DDDR model number L111 serial #[id number]. This was placed in the subfascial pocket. The wound was closed in 3 layers and dressed per protocol. RESULT: Successful dual chamber pacemaker implantation for management of symptomatic sick sinus syndrome. The pacing is programmed to DDDR mode with VIP programming to minimize RV pacing. Rate responsiveness was then turned on. Pacing rate ranging from 50-140 ppm. MMODL / IJN: [id number] /
--- NOTE | 2016-11-26 19:12 | LTR ---
DATE OF SERVICE: 11/26/16 Dear Chrissie: I had the pleasure of seeing Sowmya in electrophysiology follow up. As you know, Sowmya has quite symptomatic sick sinus syndrome, without any inciting factors. She underwent dual-chamber pacemaker implantation (MRI safe). She will continue to follow with you and Dr. Slick Vidales as before. Her antihypertensive therapy remains unchanged. If you have any questions please do not hesitate to give me a call. Sincerely yours, MMODL / IJN: [id number] /
--- NOTE | 2016-11-26 20:32 | P.PCN ---
Preoperative Diagnosis: Patient underwent EP procedure under conscious sedation/moderate sedation, monitoring of the level of consciousness and physiologic parameters including but not limited to vital signs and oxygenation. Patient tolerated the procedure well without any acute complications. Start time: 1721 Stop time: 1805
[2016-11-26] MEDS: SODIUM CHLORIDE 0.9% 1,000 ML IV SCH (20:41)
[2016-11-26] MEDS: ACETAMINOPHEN TAB 325 MG TAB PO PRN (20:43)
[2016-11-26] MEDS ORDERED: LISINOPRIL 10 MG TAB PO SCH (21:00)
[2016-11-26] MEDS: ceFAZolin 2 GM in SODIUM CHLORIDE 0.9% 100 ML IVPB SCH (22:36)
[2016-11-27] MEDS ORDERED: MELATONIN 5 MG TABLET PO PRN (01:07)
[2016-11-27] MEDS: ceFAZolin 2 GM in SODIUM CHLORIDE 0.9% 100 ML IVPB SCH ×3 (04:41→16:16)
[2016-11-27] MEDS: ACETAMINOPHEN TAB 325 MG TAB PO PRN ×2 (04:43→14:32)
[2016-11-27] MEDS: SODIUM CHLORIDE 0.9% 1,000 ML IV SCH (06:37)
--- NOTE | 2016-11-27 08:23 | XR ---
EXAMINATION TYPE: XR chest 2V DATE OF EXAM: 11/27/2016 COMPARISON: Prior chest x-ray 09/22/2016 HISTORY: Status post pacemaker placement, lead placement check TECHNIQUE: Frontal and lateral views of the chest are obtained. FINDINGS: There is been interval placement of a generator in the left pectoral region, lines coursin g to the right atrium and ventricle. No evident pneumothorax or pleural effusion. There are overlying cardiac leads. No other interval changes. IMPRESSION: No evident complication status post pacemaker placement.
--- NOTE | 2016-11-27 08:24 | P.DS ---
Providers Attending physician: Jeb Blackburn Primary care physician: [facility] Course: Patient is doing well. No chest discomfort no shortness of breath or dizziness or lightheadedness. Pacemaker site is healed well. No hematoma. Pacemaker was interrogated this morning and is within normal limits Vitals are stable. Atrial paced rhythm Heart sounds S1 and S2 are normal no murmurs or gallops Breath sounds are normal no rhonchi no crackles Extremities warm no edema Pacemaker site is healed well, no hematoma Impression Sick sinus syndrome, symptomatic status post dual-chamber pacemaker implantation Essential hypertension, on amlodipine and Zestril BMI 27.6 Plan Discharge home after completion of IV antibiotics, follow-up in the device clinic in 5 days and follow with Dr. Vidales as before Continue antihypertensive therapy as before without any changes Patient Condition at Discharge: Stable Plan - Discharge Summary New Discharge Prescriptions: Continue clonazePAM [KlonoPIN] 0.25 mg PO QAM Lisinopril [Zestril] 10 mg PO HS amLODIPine [Norvasc] 2.5 mg PO QAM Discharge Medication List clonazePAM [KlonoPIN] 0.25 mg PO QAM 09/21/16 [History] Lisinopril [Zestril] 10 mg PO HS 10/09/16 [History] amLODIPine [Norvasc] 2.5 mg PO QAM 10/09/16 [History] Activity/Diet/Wound Care/Special Instructions: PATIENT EDUCATION MATERIAL Instructions following a heart rhythm device implant. 1. Keep dressing DRY for ONE week. You may cover the area with Saran or Cling Wrap, prior to a shower. 2. The dressing will be removed after one week in the Device Clinic @ [facility]. Absorbable sutures were used to close the wound. 3. Avoid raising the [left] arm above the shoulder level. [6 week restriction] 4. Avoid arm movements, like backscratching, rubbing the head, or pulling on a cord. (6 weeks restriction) 5. Gentle range of motion movements of the shoulder, closest to the incision should be performed to avoid a frozen shoulder. (Pendulum exercises of the shoulder) 6. The opposite arm may be used freely. 7. Avoid driving for 7 days. 8. Avoid activities such as golfing, swimming, weed whacking, lifting more than 10 pounds weight, bowling, gymnastics and weight training/lifting. (6 weeks restriction) 9. Activities such as wood chopping with an axe, pull-ups in the gymnasium, power lifting, arc-welding, being close to home induction cooktops will always be a problem. In case of any problems, please call [facility], [place], @ [phone], Attention: Device Clinic Follow-up in the device clinic in 5 days Follow-up with Dr. Vidales as scheduled or within 6-12 weeks Discharge Disposition: HOME SELF-CARE
[2016-11-27] MEDS ORDERED: amLODIPine 2.5 MG TAB PO SCH (09:00)
[2016-11-27] MEDS ORDERED: clonazePAM 0.5 MG TAB PO SCH (09:00)
[2016-11-27 16:37] VITALS: BP 127/79; PULSE 59; TEMP 97.5
== END 2016-11-27 18:35 | disposition home or self-care (01) ==
LOC: CATHEP 11:42 → 3OBS 18:00 → CATHEP 11-27 18:35
PROVIDERS: ATTEND Internal Medicine Clinical Cardiac Electrophysiology
DX: I49.5 Sick sinus syndrome (principal); I10 Essential (primary) hypertension; F32.9 Major depressive disorder, single episode, unspecified; Z79.899 Other long term (current) drug therapy; Z82.49 Family history of ischemic heart disease and other diseases of the circulatory system; Z87.891 Personal history of nicotine dependence; Z98.1 Arthrodesis status
CPT/HCPCS: 33208; 99152; 99153 ×2; 80048; 85025; 71020; C1785; C1898; J2250; J2060; J0690 ×3; J2001; J3010; Q9967

== ENCOUNTER → 2017-12-24 | Outpatient (CLI) | payer BC ==
--- NOTE | 2017-12-24 17:12 | ECHOF ---
Referral Reason:R00.2 Palpitations MEASUREMENTS -------- HEIGHT: 165.1 cm WEIGHT: 63.5 kg BP: RVIDd: 3.0 cm (< 3.3) IVSd: 0.8 cm (0.6 - 1.1) LVIDd: 4.8 cm (3.9 - 5.3) LVPWd: 1.2 cm (0.6 - 1.1) IVSs: 1.3 cm LVIDs: 3.3 cm LVPWs: 1.7 cm LA Diam: 3.5 cm (2.7 - 3.8) LAESV Index (A-L): 30.33 ml/m Ao Diam: 2.9 cm (2.0 - 3.7) AV Cusp: 1.7 cm (1.5 - 2.6) LA Diam: 4.1 cm (2.7 - 3.8) MV EXCURSION: 21.866 mm (> 18.000) MV EF SLOPE: 79 mm/s (70 - 150) EPSS: 0.3 cm MV E Cornelius: 0.68 m/s MV DecT: 116 ms MV A Cornelius: 0.23 m/s MV E/A Ratio: 2.95 RAP: 5.00 mmHg RVSP: 41.83 mmHg FINDINGS -------- Paced rhythm. This was a technically good study. LV size, wall thickness and systolic function are normal, with an EF greater than 55%. The left ashu tricular size is normal. Overall left ventricular systolic function is low-normal with, an EF betwe en 50 - 55 %. The right ventricle is normal in size. The left atrium is moderately dilated. LA is midly dilated 29-33ml/m2. The right atrial size is normal. There is mild aortic valve sclerosis. There is no evidence of aortic regurgitation. Mild mitral regurgitation is present. Mild prolapse of the posterior mitral valve leaflet. Awao-uf-qmfgjyiv tricuspid regurgitation present. There is mild pulmonary hypertension. The right ventricular systolic pressure, as measured by Doppler, is 41.83mmHg. Trace/mild (physiologic) pulmonic regurgitation. The aortic root size is normal. There is no pericardial effusion. CONCLUSIONS -------- 1. LV size, wall thickness and systolic function are normal, with an EF greater than 55%. 2. The left ventricular size is normal. 3. Overall left ventricular systolic function is low-normal with, an EF between 50 - 55 %. 4. The right ventricle is normal in size. 5. The left atrium is moderately dilated. 6. LA is midly dilated 29-33ml/m2. 7. The right atrial size is normal. 8. There is mild aortic valve sclerosis. 9. Mild mitral regurgitation is present. 10. Mild prolapse of the posterior mitral valve leaflet. 11. Hsxe-cr-vskexpxr tricuspid regurgitation present. 12. There is mild pulmonary hypertension. 13. The right ventricular systolic pressure, as measured by Doppler, is 41.83mmHg. 14. Trace/mild (physiologic) pulmonic regurgitation. 15. The aortic root size is normal. 16. There is no pericardial effusion. NUMEROLOGIST: Summer Oliver RDCS
== END | disposition home or self-care (01) ==
LOC: RADECHMAIN 12:55
PROVIDERS: ATTEND Family Medicine
DX: I08.3 Combined rheumatic disorders of mitral, aortic and tricuspid valves (principal); I27.20 Pulmonary hypertension, unspecified
CPT/HCPCS: 93306

== ENCOUNTER → 2018-01-20 | Outpatient (CLI) | payer BC ==
--- NOTE | 2018-01-20 16:19 | XR ---
EXAMINATION TYPE: XR chest 2V DATE OF EXAM: 01/20/2018 COMPARISON: Prior chest x-ray 11/27/2016 HISTORY: Shortness of breath and cough TECHNIQUE: Frontal and lateral views of the chest are obtained. FINDINGS: Prominent lung volumes could be indicative of underlying COPD. There is a generator in lef t pectoral region, leads are present in the right atrium and ventricle. Cardiac mediastinal silhouett e, pulmonary vascularity and sung are stable. No evident airspace disease, pneumothorax, or pleural e ffusion. Postop changes are noted to the cervical spine. There is a spinal curvature. Surgical clips present in the upper abdomen. IMPRESSION: No acute cardiopulmonary process.
== END ==
LOC: RADXRMAIN 13:13
PROVIDERS: ATTEND Family Medicine
DX: R06.02 Shortness of breath (principal)
CPT/HCPCS: 71046

== ENCOUNTER 2018-05-30 12:44 | Emergency (ER) | payer BC ==
[2018-05-30 13:03] VITALS: PULSE 52; RESP 16
[2018-05-30] MEDS ORDERED: SODIUM CHLORIDE 0.9% 1,000 ML IV STA (14:02)
--- NOTE | 2018-05-30 14:08 | ED ---
Headache HPI - General Chief Complaint: Headache Stated Complaint: High blood presure Time Seen by Provider: 05/30/18 13:29 Mode of arrival: wheelchair Limitations: no limitations - History of Present Illness Initial Comments: 57-year-old female patient presents to the emergency department today for evaluation of headache, dizziness, and confusion. Patient states that she has b een feeling unwell for the last couple of weeks. Patient states that her symptoms have worsened over the last couple of days. Patient states she has noted her blood pressure is been higher over the last couple of days. She states that she has been having frequent headaches. States that today she was quite confused. States she has been feeling lightheaded intermittently. States that a couple of weeks ago she did have some tingling to the left arm and some pain in her left posterior shoulder. She denies a current numbness, tingling, or weakness. Denies blurred or double vision. Denies any head injury. States she does take was inappropriate twice daily for elevated blood pressure. Patient denies any recent rash, fever, chills, shortness breath, abdominal pain, nausea, vomiting, diarrhea, constipation, back pain, hematuria, dysuria, urinary urgency, urinary frequency, or any other complaints. - Related Data Home Medications Medication Instructions Recorded Confirmed Lisinopril [Zestril] 10 mg PO BID 10/09/16 05/30/18 Apixaban [Eliquis] 5 mg PO BID 05/30/18 05/30/18 FLUoxetine HCL [PROzac] 20 mg PO HS 05/30/18 05/30/18 Metoprolol Succinate [Toprol Xl] 50 mg PO 05/30/18 traZODone HCL 50 mg PO HS 05/30/18 05/30/18 Previous Rx's Medication Instructions Recorded Meclizine HCl 25 mg PO BID #14 tablet 05/30/18 Allergies Allergy/AdvReac Type Severity Reaction Status Date / Time No Known Allergies Allergy Verified 05/30/18 13:03 Review of Systems ROS Statement: Those systems with pertinent positive or pertinent negative responses have been documented in the HPI. ROS Other: All systems not noted in ROS Statement are negative. Past Medical History Past Medical History: Atrial Fibrillation, Hypertension, Sleep Apnea/CPAP/BIPAP, Syncope Additional Past Medical History / Comment(s): vertigo, see Dr Blackburn [facility], possible sleep apnea-recent sleep study-doesn't have results yet History of Any Multi-Drug Resistant Organisms: None Reported Past Surgical History: Back Surgery, Cholecystectomy, Pacemaker Additional Past Surgical History / Comment(s): neck FUSION HAS PLATE, BACK SX- LAMINECTOMY/FUSION, COLONOSCOPY Past Anesthesia/Blood Transfusion Reactions: Previous Problems w/ Anesthesia Additional Past Anesthesia/Blood Transfusion Reaction / Comment(s): had problem w/intubation w/last surgery due to cervical fusion Past Psychological History: Anxiety Smoking Status: Former smoker Past Alcohol Use History: None Reported Past Drug Use History: None Reported - Past Family History Mother Family Medical History: Cancer Additional Family Medical History / Comment(s): BREAST CANCER Father Family Medical History: Cancer, Diabetes Mellitus, Hypertension Additional Family Medical History / Comment(s): MELANOMA General Exam Limitations: no limitations General appearance: alert, in no apparent distress, other (Physical well- developed, well-nourished adult female patient in no acute distress. Vital signs upon presentation are temperature 98.8F, pulse 52, respirations 16, blood pressure 172/77, pulse ox 99% on room air.) Eye exam: Present: normal appearance, PERRL, EOMI. Absent: scleral icterus, conjunctival injection, nystagmus, periorbital swelling ENT exam: Present: normal exam, normal oropharynx, mucous membranes moist Respiratory exam: Present: normal lung sounds bilaterally. Absent: respiratory distress, wheezes, rales, rhonchi, stridor Cardiovascular Exam: Present: regular rate, normal rhythm, normal heart sounds. Absent: systolic murmur, diastolic murmur, rubs, gallop, clicks GI/Abdominal exam: Present: soft, normal bowel sounds. Absent: distended, tenderness, guarding, rebound, rigid Neurological exam: Present: alert, oriented X3, CN II-XII intact, other (Strength in all 4 extremities is 5/5) Psychiatric exam: Present: normal affect, normal mood Skin exam: Present: warm, dry, intact, normal color. Absent: rash Course Vital Signs 05/30/18 05/30/18 12:59 14:30 Temperature 98.8 F Pulse Rate 52 L 52 L Respiratory 16 16 Rate Blood Pressure 172/77 169/84 O2 Sat by Pulse 99 99 Oximetry Medical Decision Making - Medical Decision Making 49-year-old female patient presents to emergency department today for evaluation of dizziness, confusion, and elevated blood pressure. Physical examination is unremarkable. Patient is neurologically intact with no focal deficits. Labs reviewed and are unremarkable. CT brain was obtained and did show some scant fluid in the mastoid air cells. Patient had no mastoid tenderness, no ear pain or history of ear infection. Patient does report feeling better now that her blood pressure has decreased. She will be discharged home at this time to follow-up with her primary care physician for recheck in 1-2 days. She is instructed to keep a log of blood pressures take with her to her appointment. R eturn parameters were discussed in detail. She verbalizes understanding and agrees with this plan. - Lab Data Result diagrams: 05/30/18 14:25 05/30/18 14:25 Lab Results 05/30/18 05/30/18 05/30/18 Range/Units 14:25 14:25 14:25 WBC 3.9 (3.8-10.6) k/uL RBC 4.40 (3.80-5.40) m/uL Hgb 12.6 (11.4-16.0) gm/dL Hct 39.2 (34.0-46.0) % MCV 89.0 (80.0-100.0) fL MCH 28.7 (25.0-35.0) pg MCHC 32.2 (31.0-37.0) g/dL RDW 13.3 (11.5-15.5) % Plt Count 160 (150-450) k/uL Neutrophils % 60 % Lymphocytes % 29 % Monocytes % 5 % Eosinophils % 2 % Basophils % 1 % Neutrophils # 2.3 (1.3-7.7) k/uL Lymphocytes # 1.1 (1.0-4.8) k/uL Monocytes # 0.2 (0-1.0) k/uL Eosinophils # 0.1 (0-0.7) k/uL Basophils # 0.0 (0-0.2) k/uL Sodium 140 (137-145) mmol/L Potassium 3.5 (3.5-5.1) mmol/L Chloride 106 (98-107) mmol/L Carbon Dioxide 26 (22-30) mmol/L Anion Gap 8 mmol/L BUN 11 (7-17) mg/dL Creatinine 0.68 (0.52-1.04) mg/dL Est GFR (CKD-EPI)AfAm >90 (>60 ml/min/1.73 sqM) Est GFR (CKD-EPI)NonAf >90 (>60 ml/min/1.73 sqM) Glucose 78 (74-99) mg/dL Calcium 9.4 (8.4-10.2) mg/dL Magnesium 1.9 (1.6-2.3) mg/dL Total Bilirubin 0.9 (0.2-1.3) mg/dL AST 35 (14-36) U/L ALT 40 (9-52) U/L Alkaline Phosphatase 63 (38-126) U/L Troponin I <0.012 (0.000-0.034) ng/mL Total Protein 6.7 (6.3-8.2) g/dL Albumin 4.3 (3.5-5.0) g/dL Urine Color Urine Appearance (Clear) Urine pH (5.0-8.0) Ur Specific [place] (1.001-1.035) Urine Protein (Negative) Urine Glucose (UA) (Negative) Urine Ketones (Negative) Urine Blood (Negative) Urine Nitrite (Negative) Urine Bilirubin (Negative) Urine Urobilinogen (<2.0) mg/dL Ur Leukocyte Esterase (Negative) 05/30/18 Range/Units 14:25 WBC (3.8-10.6) k/uL RBC (3.80-5.40) m/uL Hgb (11.4-16.0) gm/dL Hct (34.0-46.0) % MCV (80.0-100.0) fL MCH (25.0-35.0) pg MCHC (31.0-37.0) g/dL RDW (11.5-15.5) % Plt Count (150-450) k/uL Neutrophils % % Lymphocytes % % Monocytes % % Eosinophils % % Basophils % % Neutrophils # (1.3-7.7) k/uL Lymphocytes # (1.0-4.8) k/uL Monocytes # (0-1.0) k/uL Eosinophils # (0-0.7) k/uL Basophils # (0-0.2) k/uL Sodium (137-145) mmol/L Potassium (3.5-5.1) mmol/L Chloride (98-107) mmol/L Carbon Dioxide (22-30) mmol/L Anion Gap mmol/L BUN (7-17) mg/dL Creatinine (0.52-1.04) mg/dL Est GFR (CKD-EPI)AfAm (>60 ml/min/1.73 sqM) Est GFR (CKD-EPI)NonAf (>60 ml/min/1.73 sqM) Glucose (74-99) mg/dL Calcium (8.4-10.2) mg/dL Magnesium (1.6-2.3) mg/dL Total Bilirubin (0.2-1.3) mg/dL AST (14-36) U/L ALT (9-52) U/L Alkaline Phosphatase (38-126) U/L Troponin I (0.000-0.034) ng/mL Total Protein (6.3-8.2) g/dL Albumin (3.5-5.0) g/dL Urine Color Colorless Urine Appearance Clear (Clear) Urine pH 6.0 (5.0-8.0) Ur Specific [place] 1.003 (1.001-1.035) Urine Protein Negative (Negative) Urine Glucose (UA) Negative (Negative) Urine Ketones Negative (Negative) Urine Blood Negative (Negative) Urine Nitrite Negative (Negative) Urine Bilirubin Negative (Negative) Urine Urobilinogen <2.0 (<2.0) mg/dL Ur Leukocyte Esterase Negative (Negative) - EKG Data -: EKG Interpreted by Ne EKG Comments: EKG obtained at 1335 shows atrial paced rhythm with a prolonged AV conduction. Ventricular rate is 50, GA interval 218, QRS duration 96, QT 480, QTc 437. No evidence of ST elevation or depression. - Radiology Data Radiology results: report reviewed, image reviewed CT brain without contrast was obtained. Report was reviewed in its entirety. Impression by Dr. Vu shows no acute intracranial process. Skeletal within the left mastoid air cells that may clinically correlate with mastoiditis. Disposition Clinical Impression: Headache, Hypertension Disposition: HOME SELF-CARE Condition: Good Instructions (If sedation given, give patient instructions): Acute Headache (ED), Hypertension (ED) Additional Instructions: Take medications as directed. Follow up with her primary care physician for recheck. Keep a log of your blood pressures to take to your next appointment. Return to the emergency department immediately for any new, worsening, or concerning symptoms. Prescriptions: Meclizine HCl 25 mg PO BID #14 tablet Is patient prescribed a controlled substance at d/c from ED?: No Referrals: Chrissie Castillo MD [Primary Care Provider] - 1-2 days Time of Disposition: 15:17
[2018-05-30 14:37] LABS: Basophils % (A) 1 %; Eosinophils # (A) 0.1 k/uL (0-0.7); Eosinophils % (A) 2 %; HCT 39.2 % (34.0-46.0); HGB 12.6 gm/dL (11.4-16.0); Lymphocytes # (A) 1.1 k/uL (1.0-4.8); Lymphocytes % (A) 29 %; MCH 28.7 pg (25.0-35.0); MCHC 32.2 g/dL (31.0-37.0); Mean Platelet Volume 7.5; Monocytes # (A) 0.2 k/uL (0-1.0); Monocytes % (A) 5 %; Neutrophils # (A) 2.3 k/uL (1.3-7.7); Neutrophils % (A) 60 %; Platelet Count 160 k/uL (150-450); RDW 13.3 % (11.5-15.5); WBC 3.9 k/uL (3.8-10.6)
[2018-05-30 14:43] LABS: Appearance,Urine Clear (Clear); Bilirubin,Urine Negative (Negative); Blood,Urine Negative (Negative); Color,Urine Colorless; Glucose,Urine (UA) Negative (Negative); Ketones,Urine Negative (Negative); Leukocyte Esterase,Urine Negative (Negative); Nitrite,Urine Negative (Negative); Protein,Urine Negative (Negative); Specific Gravity,Urine 1.003 (1.001-1.035); Urobilinogen,Urine <2.0 mg/dL (<2.0)
[2018-05-30 14:46] LABS: ALT 40 U/L (9-52); AST 35 U/L (14-36); Albumin 4.3 g/dL (3.5-5.0); Alkaline Phosphatase 63 U/L (38-126); Anion Gap 8 mmol/L; Blood Urea Nitrogen 11 mg/dL (7-17); Calcium 9.4 mg/dL (8.4-10.2); Carbon Dioxide 26 mmol/L (22-30); Chloride 106 mmol/L (98-107); Glucose 78 mg/dL (74-99); Magnesium 1.9 mg/dL (1.6-2.3); Potassium 3.5 mmol/L (3.5-5.1); Sodium 140 mmol/L (137-145); Total Bilirubin 0.9 mg/dL (0.2-1.3); Total Protein 6.7 g/dL (6.3-8.2)
--- NOTE | 2018-05-30 14:51 | CT ---
EXAMINATION TYPE: CT brain wo con DATE OF EXAM: 05/30/2018 COMPARISON: NONE HISTORY: Headache, high blood pressure CT DLP: 1148.4 mGycm. Automated Exposure Control for Dose Reduction was Utilized. TECHNIQUE: CT scan of the head is performed without contrast. FINDINGS: There is no acute intracranial hemorrhage, mass effect, or midline shift identified. The ventricles and sulci are within normal limits in size. No suspicious extra axial fluid collection. The globes are intact and the visualized sinuses are clear. Right mastoid air cells are well aerated. Inferior portions of the left mastoid air cells are partially opacified. IMPRESSION: 1. No acute intracranial process. 2. Scant fluid within the left mastoid air cells that may clinically correlate with mastoiditis. Tanesha elate for point tenderness.
[2018-05-30 15:36] VITALS: BP 160/81; TEMP 98
== END 2018-05-30 15:35 | disposition home or self-care (01) ==
LOC: EC 12:44
DX: R51 Headache (principal); I10 Essential (primary) hypertension; H74.8X2 Other specified disorders of left middle ear and mastoid; R42 Dizziness and giddiness; R41.0 Disorientation, unspecified; I48.91 Unspecified atrial fibrillation; F41.9 Anxiety disorder, unspecified; G47.30 Sleep apnea, unspecified; Z95.0 Presence of cardiac pacemaker; Z87.891 Personal history of nicotine dependence; Z82.49 Family history of ischemic heart disease and other diseases of the circulatory system; Z79.01 Long term (current) use of anticoagulants; Z79.899 Other long term (current) drug therapy
CPT/HCPCS: 36415; 70450; 80053; 81003; 83735; 84484; 85025; 93005; 96360; 99284

== ENCOUNTER → 2018-06-19 | Outpatient (CLI) | payer BC ==
--- NOTE | 2018-06-20 13:02 | MM ---
Reason for exam: screening (asymptomatic). Last mammogram was performed 2 years and 4 months ago. History: Patient is postmenopausal. Family history of breast cancer in mother. Took hormonal contraceptives for 5 years. Physical Findings: A clinical breast exam by your physician is recommended on an annual basis and results should be correlated with mammographic findings. MG Screening Mammo w CAD Bilateral CC and MLO view(s) were taken. Prior study comparison: February 17, 2016, bilateral MG screening mammo w CAD. December 31, 2012, bilateral digital screening mammo w/CAD. The breast tissue is heterogeneously dense. This may lower the sensitivity of mammography. There is chronic nodularity bilaterally. There is no discrete abnormality. New left axillary pacemaker. ASSESSMENT: Benign, BI-RAD 2 RECOMMENDATION: Routine screening mammogram of both breasts in 1 year.
== END | disposition home or self-care (01) ==
LOC: RADMAMWWP 13:44
PROVIDERS: ATTEND Family Medicine
DX: Z12.31 Encounter for screening mammogram for malignant neoplasm of breast (principal)
CPT/HCPCS: 77067

== ENCOUNTER 2019-02-11 16:58 | Observation (INO) | payer BC ==
[2019-02-11] MEDS ORDERED: SODIUM CHLORIDE 0.9% 1,000 ML IV STA (17:40)
--- NOTE | 2019-02-11 17:54 | XR ---
EXAMINATION TYPE: XR chest 2V DATE OF EXAM: 02/11/2019 COMPARISON: 01/20/2018 HISTORY: Short of breath TECHNIQUE: 2 views FINDINGS: Heart and mediastinum are normal. Lungs are clear. Diaphragm is normal. Bony thorax appears normal. There is left axillary pacemaker. IMPRESSION: No cardiopulmonary disease. No change.
[2019-02-11 18:24] LABS: Basophils % (A) 1 %; Eosinophils # (A) 0.1 k/uL (0-0.7); Eosinophils % (A) 1 %; HCT 38.7 % (34.0-46.0); HGB 12.5 gm/dL (11.4-16.0); Lymphocytes # (A) 1.2 k/uL (1.0-4.8); Lymphocytes % (A) 14 %; MCH 29.4 pg (25.0-35.0); MCHC 32.4 g/dL (31.0-37.0); MCV 90.6 fL (80.0-100.0); Mean Platelet Volume 8.4; Monocytes # (A) 0.4 k/uL (0-1.0); Monocytes % (A) 5 %; Neutrophils # (A) 6.8 k/uL (1.3-7.7); Neutrophils % (A) 78 %; Platelet Count 164 k/uL (150-450); RBC 4.27 m/uL (3.80-5.40); RDW 12.8 % (11.5-15.5); WBC 8.7 k/uL (3.8-10.6)
--- NOTE | 2019-02-11 18:26 | ED ---
General Adult HPI - General Chief complaint: Syncope Stated complaint: Syncope/cardiac issues Time Seen by Provider: 02/11/19 17:22 Source: patient, RN notes reviewed Mode of arrival: ambulatory Limitations: no limitations - History of Present Illness Initial comments: 58-year-old female with a past medical history of atrial fibrillation, hypertension, pacemaker implantation 2 years ago for bradycardia presents to the emergency department for a chief of pain of syncope. Patient had a syncopal episode earlier this afternoon. States that she was cleaning her car when she bent down to clean the wheel well when she started to feel lightheaded. Patient states she walked in the house and felt like she was going to pass out. Patient sat down and told her to call the ambulance. Patient did have a syncopal episode. She did not hit her head. Patient states that her pacemaker is supposed to pace at a heart rate of 50.Patient has no other complaints at this time including shortness of breath, chest pain, abdominal pain, nausea or vomiting, headache, or visual changes. - Related Data Home Medications Medication Instructions Recorded Confirmed Lisinopril [Zestril] 10 mg PO BID 10/09/16 05/30/18 Apixaban [Eliquis] 5 mg PO BID 05/30/18 05/30/18 FLUoxetine HCL [PROzac] 20 mg PO HS 05/30/18 05/30/18 Metoprolol Succinate [Toprol Xl] 50 mg PO 05/30/18 traZODone HCL 50 mg PO HS 05/30/18 05/30/18 Previous Rx's Medication Instructions Recorded Meclizine HCl 25 mg PO BID #14 tablet 05/30/18 Allergies Allergy/AdvReac Type Severity Reaction Status Date / Time No Known Allergies Allergy Verified 02/11/19 17:11 Review of Systems ROS Statement: Those systems with pertinent positive or pertinent negative responses have been documented in the HPI. ROS Other: All systems not noted in ROS Statement are negative. Past Medical History Past Medical History: Atrial Fibrillation, Hypertension, Sleep Apnea/CPAP/BIPAP, Syncope Additional Past Medical History / Comment(s): vertigo, see Dr Blackburn H & P, possible sleep apnea-recent sleep study-doesn't have results yet History of Any Multi-Drug Resistant Organisms: None Reported Past Surgical History: Back Surgery, Cholecystectomy, Pacemaker Additional Past Surgical History / Comment(s): neck FUSION HAS PLATE, BACK SX- LAMINECTOMY/FUSION, COLONOSCOPY Past Anesthesia/Blood Transfusion Reactions: Previous Problems w/ Anesthesia Additional Past Anesthesia/Blood Transfusion Reaction / Comment(s): had problem w/intubation w/last surgery due to cervical fusion Past Psychological History: Anxiety Smoking Status: Former smoker Past Alcohol Use History: None Reported Past Drug Use History: None Reported - Past Family History Mother Family Medical History: Cancer Additional Family Medical History / Comment(s): BREAST CANCER Father Family Medical History: Cancer, Diabetes Mellitus, Hypertension Additional Family Medical History / Comment(s): MELANOMA General Exam Limitations: no limitations General appearance: alert, in no apparent distress Head exam: Present: atraumatic, normocephalic, normal inspection Eye exam: Present: normal appearance, PERRL, EOMI. Absent: scleral icterus, conjunctival injection, periorbital swelling ENT exam: Present: normal exam, normal oropharynx, mucous membranes moist, TM's normal bilaterally, normal external ear exam Neck exam: Present: normal inspection, full ROM. Absent: tenderness, meningismus, lymphadenopathy Respiratory exam: Present: normal lung sounds bilaterally. Absent: respiratory distress, wheezes, rales, rhonchi, stridor Cardiovascular Exam: Present: regular rate, normal rhythm, normal heart sounds. Absent: systolic murmur, diastolic murmur, rubs, gallop, clicks GI/Abdominal exam: Present: soft, normal bowel sounds. Absent: distended, tenderness, guarding, rebound, rigid Neurological exam: Present: alert Course Vital Signs 02/11/19 02/11/19 02/11/19 17:08 17:30 18:00 Temperature 97.4 F L Pulse Rate 50 L 49 L 49 L Respiratory 18 6 L 20 Rate Blood Pressure 120/75 120/74 115/58 O2 Sat by Pulse 98 100 100 Oximetry 02/11/19 02/11/19 18:30 19:00 Temperature Pulse Rate 50 L 50 L Respiratory 16 16 Rate Blood Pressure 102/66 116/72 O2 Sat by Pulse 100 99 Oximetry EKG Findings - EKG Comments: EKG Findings:: Atrial paced rhythm, ventricular rate 50, FL interval 234, QTC 437 Medical Decision Making - Medical Decision Making Patient has a pacemaker for some dramatic bradycardia. She has syncopal episode earlier today. Apparently and EMS heart rate was down to 46. It is supposed to be maintained at 50. Heart rate here in the emergency department is oscillating between 49 and 50. Patient does have better at this time. CBC CMP unremarkable. There is some evidence of dehydration however. Troponin is negative. Chest x-ray shows no acute process. We did attempt interrogate pacemaker several times here in the emergency department however were ultimately unable to transmit this. However given syncope and some dramatic bradycardia patient will be admitted for cardiology consultation and further management. She was given fluids for her dehydration. - Lab Data Result diagrams: 02/11/19 17:17 02/11/19 17:17 Lab Results 02/11/19 02/11/19 02/11/19 Range/Units 17:17 17:17 17:17 WBC 8.7 (3.8-10.6) k/uL RBC 4.27 (3.80-5.40) m/uL Hgb 12.5 (11.4-16.0) gm/dL Hct 38.7 (34.0-46.0) % MCV 90.6 (80.0-100.0) fL MCH 29.4 (25.0-35.0) pg MCHC 32.4 (31.0-37.0) g/dL RDW 12.8 (11.5-15.5) % Plt Count 164 (150-450) k/uL Neutrophils % 78 % Lymphocytes % 14 % Monocytes % 5 % Eosinophils % 1 % Basophils % 1 % Neutrophils # 6.8 (1.3-7.7) k/uL Lymphocytes # 1.2 (1.0-4.8) k/uL Monocytes # 0.4 (0-1.0) k/uL Eosinophils # 0.1 (0-0.7) k/uL Basophils # 0.0 (0-0.2) k/uL PT 10.6 (9.0-12.0) sec INR 1.0 (<1.2) APTT 22.2 (22.0-30.0) sec Sodium 137 (137-145) mmol/L Potassium 3.8 (3.5-5.1) mmol/L Chloride 104 (98-107) mmol/L Carbon Dioxide 26 (22-30) mmol/L Anion Gap 7 mmol/L BUN 20 H (7-17) mg/dL Creatinine 1.25 H (0.52-1.04) mg/dL Est GFR (CKD-EPI)AfAm 55 (>60 ml/min/1.73 sqM) Est GFR (CKD-EPI)NonAf 47 (>60 ml/min/1.73 sqM) Glucose 107 H (74-99) mg/dL Calcium 8.9 (8.4-10.2) mg/dL Magnesium 2.0 (1.6-2.3) mg/dL Total Bilirubin 1.4 H (0.2-1.3) mg/dL AST 30 (14-36) U/L ALT 18 (4-34) U/L Alkaline Phosphatase 41 (38-126) U/L Troponin I (0.000-0.034) ng/mL Total Protein 6.9 (6.3-8.2) g/dL Albumin 4.0 (3.5-5.0) g/dL 02/11/19 Range/Units 17:17 WBC (3.8-10.6) k/uL RBC (3.80-5.40) m/uL Hgb (11.4-16.0) gm/dL Hct (34.0-46.0) % MCV (80.0-100.0) fL MCH (25.0-35.0) pg MCHC (31.0-37.0) g/dL RDW (11.5-15.5) % Plt Count (150-450) k/uL Neutrophils % % Lymphocytes % % Monocytes % % Eosinophils % % Basophils % % Neutrophils # (1.3-7.7) k/uL Lymphocytes # (1.0-4.8) k/uL Monocytes # (0-1.0) k/uL Eosinophils # (0-0.7) k/uL Basophils # (0-0.2) k/uL PT (9.0-12.0) sec INR (<1.2) APTT (22.0-30.0) sec Sodium (137-145) mmol/L Potassium (3.5-5.1) mmol/L Chloride (98-107) mmol/L Carbon Dioxide (22-30) mmol/L Anion Gap mmol/L BUN (7-17) mg/dL Creatinine (0.52-1.04) mg/dL Est GFR (CKD-EPI)AfAm (>60 ml/min/1.73 sqM) Est GFR (CKD-EPI)NonAf (>60 ml/min/1.73 sqM) Glucose (74-99) mg/dL Calcium (8.4-10.2) mg/dL Magnesium (1.6-2.3) mg/dL Total Bilirubin (0.2-1.3) mg/dL AST (14-36) U/L ALT (4-34) U/L Alkaline Phosphatase (38-126) U/L Troponin I <0.012 (0.000-0.034) ng/mL Total Protein (6.3-8.2) g/dL Albumin (3.5-5.0) g/dL Disposition Clinical Impression: Syncope Disposition: ADMITTED IP TO THIS HOSP Condition: Fair Is patient prescribed a controlled substance at d/c from ED?: No Referrals: Chrissie Castillo MD [Primary Care Provider] - 1-2 days Time of Disposition: 19:59
[2019-02-11 18:40] LABS: Partial Thromboplastin Time 22.2 sec (22.0-30.0); Prothrombin Time 10.6 sec (9.0-12.0)
[2019-02-11 18:53] LABS: Calcium 8.9 mg/dL (8.4-10.2); Potassium 3.8 mmol/L (3.5-5.1); Total Bilirubin 1.4 mg/dL (0.2-1.3); Total Protein 6.9 g/dL (6.3-8.2)
[2019-02-11] MEDS ORDERED: NALOXONE 0.4 MG/ML 1 ML VIAL IV PRN (19:55)
[2019-02-11] MEDS: SODIUM CHLORIDE 0.9% 1,000 ML IV SCH (21:50)
[2019-02-11] MEDS: APIXABAN 5 MG TAB PO SCH (22:13)
[2019-02-11] MEDS: LISINOPRIL 10 MG TAB PO SCH (22:13)
[2019-02-11] MEDS ORDERED: traZODone HCL 50 MG TAB PO SCH (22:15)
[2019-02-12] MEDS: SODIUM CHLORIDE 0.9% 1,000 ML IV SCH (06:19)
[2019-02-12] MEDS: APIXABAN 5 MG TAB PO SCH (09:34)
[2019-02-12 09:43] LABS: Calcium 8.7 mg/dL (8.4-10.2)
[2019-02-12 10:12] LABS: Potassium 4.6 mmol/L (3.5-5.1)
--- NOTE | 2019-02-12 10:18 | P.CRDCN ---
History of Present Illness Consult date: 02/12/19 Requesting physician: Jaren Gama Reason for Consult (text): syncope, pacemaker Chief complaint: syncope, low blood pressure History of present illness: This is a pleasant 58-year-old female patient who follows with Dr. Blackburn in the office. She has a history of sick sinus syndrome, status post pacemaker, paroxysmal atrial fibrillation for which she is anticoagulated on Eliquis, and hypertension. She was last seen in the office in December of this year and at that time was complaining of episodes of dizziness and her Dyazide was cut in half. She did have her pacemaker interrogated at that time which showed normal function, her sensory was adjusted for better him her rate response with activity. She presented to the emergency department via EMS after having a syncopal episode at home. Apparently she had been not feeling well was tired and was resting in bed. She got up out of bed and once the door because family had arrived at which time she felt very weak and dizzy. Family helped walk her into her kitchen, sat her in a chair and checked her blood pressure which was 90 systolic. They attempted to stand her and were unable to get a blood pressure reading and the patient had an episode of syncope. She was lowered to the floor by her family. Purely the patient does not drink much water and has not been eating well. There was a question of possible pacemaker malfunction but there is no sign of pacemaker malfunction on telemetry or EKG and pacemaker interrogation came in to be normal. Labs show an elevated BUN and creatinine with a creatinine of 1.25. Her creatinine in May of this year was 0.68. Troponins have been negative 3. EKG showed atrial paced rhythm with a heart rate of 50. Chest x-ray showed no cardiopulmonary disease, no change. Patient did undergo echocardiogram in the office in November which showed normal LV systolic function with an ejection fraction of 65%, mild MR and mild to moderate TR. Carotid duplex at that time showed mild disease bilaterally. Upon examination this morning, patient is resting comfortably in bed. She did receive 1.5 L bolus in the emergency department and has 0.9 normal saline going at 100 mL an hour. Overall she is feeling better. She's had no further complaints of dizziness and has had no further syncope. She has had some periodic hypotension since admission. Home medications include Dyazide half tablet daily which she has only been taking for blood pressure greater than 140, lisinopril 10 mg by mouth twice a day and metoprolol succinate 50 mg by mouth daily at bedtime. Past Medical History Past Medical History: Atrial Fibrillation, Hypertension, Sleep Apnea/CPAP/BIPAP, Syncope Additional Past Medical History / Comment(s): vertigo, see Dr Bere Chase & P, possible sleep apnea-recent sleep study-doesn't have results yet History of Any Multi-Drug Resistant Organisms: None Reported Past Surgical History: Back Surgery, Cholecystectomy, Pacemaker Additional Past Surgical History / Comment(s): neck FUSION HAS PLATE, BACK SX- LAMINECTOMY/FUSION, COLONOSCOPY Past Anesthesia/Blood Transfusion Reactions: Previous Problems w/ Anesthesia Additional Past Anesthesia/Blood Transfusion Reaction / Comment(s): had problem w/intubation w/last surgery due to cervical fusion Type of Cardiac Device: Permanent Pacemaker Device Placement Date:: 11/2016 Past Psychological History: Anxiety Additional Psychological History / Comment(s): . Smoking Status: Former smoker Past Alcohol Use History: None Reported Additional Past Alcohol Use History / Comment(s): STARTED SMOKING AGE 16(1977) SMOKED 1 PPD. QUIT 1997 Past Drug Use History: None Reported - Past Family History Mother Family Medical History: Cancer Additional Family Medical History / Comment(s): BREAST CANCER Father Family Medical History: Cancer, Diabetes Mellitus, Hypertension Additional Family Medical History / Comment(s): MELANOMA Medications and Allergies Home Medications Medication Instructions Recorded Confirmed Type Lisinopril [Zestril] 10 mg PO BID 10/09/16 02/11/19 History Apixaban [Eliquis] 5 mg PO BID 05/30/18 02/11/19 History FLUoxetine HCL [PROzac] 20 mg PO DAILY 05/30/18 02/11/19 History Metoprolol Succinate [Toprol Xl] 50 mg PO HS 05/30/18 02/11/19 History traZODone HCL 50 mg PO HS 05/30/18 02/11/19 History Triamterene-Hctz 37.5-25Mg 0.5 tab PO Q48H 02/11/19 02/11/19 History [Maxzide 37.5-25] Allergies Allergy/AdvReac Type Severity Reaction Status Date / Time No Known Allergies Allergy Verified 02/11/19 21:07 Physical Exam Vitals: Vital Signs Temp Pulse Pulse Pulse Pulse Pulse Resp 02/12/19 09:09 50 L 53 L 67 02/12/19 07:57 98.1 F 51 L 16 02/12/19 04:00 51 L 16 02/12/19 00:00 50 L 16 02/11/19 21:28 99.1 F 50 L 16 02/11/19 20:30 49 L 18 02/11/19 19:00 50 L 16 02/11/19 18:30 50 L 16 02/11/19 18:00 49 L 20 02/11/19 17:30 49 L 6 L 02/11/19 17:08 97.4 F L 50 L 18 BP BP BP BP BP Pulse Ox 02/12/19 09:09 106/70 109/73 109/68 02/12/19 07:57 116/68 100 02/12/19 04:00 109/63 96 02/12/19 00:00 87/50 98 02/11/19 21:28 130/70 98 02/11/19 20:30 115/70 02/11/19 19:00 116/72 99 02/11/19 18:30 102/66 100 02/11/19 18:00 115/58 100 02/11/19 17:30 120/74 100 02/11/19 17:08 120/75 98 Intake and Output 02/11/19 02/12/19 02/12/19 22:59 06:59 14:59 Other: Voiding Method Toilet Toilet # Voids 2 Weight 66.5 kg 66.5 kg PHYSICAL EXAMINATION: HEENT: Head is atraumatic, normocephalic. Pupils equal, round. Neck is supple. There is no elevated jugular venous pressure. No carotid bruit. HEART EXAMINATION: Heart sounds regular, S1 and S2 normal. No murmur or gallop heard. CHEST EXAMINATION: Lungs are clear to auscultation and precussion. No chest wall tenderness is noted on palpation or with deep breathing. ABDOMEN: Soft, nontender. Bowel sounds are heard. No organomegaly noted. EXTREMITIES: 2+ peripheral pulses with no evidence of peripheral edema and no calf tenderness noted. NEUROLOGIC patient is awake, alert and oriented x3. . Results 02/11/19 17:17 02/11/19 17:17 Cardiac Enzymes 02/11/19 02/11/19 02/11/19 Range/Units 17:17 17:17 22:57 AST 30 (14-36) U/L Troponin I <0.012 <0.012 (0.000-0.034) ng/mL 02/12/19 Range/Units 05:53 AST (14-36) U/L Troponin I <0.012 (0.000-0.034) ng/mL Coagulation 02/11/19 Range/Units 17:17 PT 10.6 (9.0-12.0) sec APTT 22.2 (22.0-30.0) sec CBC 02/11/19 Range/Units 17:17 WBC 8.7 (3.8-10.6) k/uL RBC 4.27 (3.80-5.40) m/uL Hgb 12.5 (11.4-16.0) gm/dL Hct 38.7 (34.0-46.0) % Plt Count 164 (150-450) k/uL Comprehensive Metabolic Panel 02/11/19 Range/Units 17:17 Sodium 137 (137-145) mmol/L Potassium 3.8 (3.5-5.1) mmol/L Chloride 104 (98-107) mmol/L Carbon Dioxide 26 (22-30) mmol/L BUN 20 H (7-17) mg/dL Creatinine 1.25 H (0.52-1.04) mg/dL Glucose 107 H (74-99) mg/dL Calcium 8.9 (8.4-10.2) mg/dL AST 30 (14-36) U/L ALT 18 (4-34) U/L Alkaline Phosphatase 41 (38-126) U/L Total Protein 6.9 (6.3-8.2) g/dL Albumin 4.0 (3.5-5.0) g/dL Current Medications Generic Name Dose Route Start Last Admin Trade Name Freq PRN Reason Stop Dose Admin Apixaban 5 mg 02/11/19 22:15 02/12/19 09:34 Eliquis PO 5 mg BID [facility] Administration Sodium Chloride 1,000 mls @ 100 mls/hr 02/11/19 20:00 02/12/19 06:19 Saline 0.9% IV Not Given .Q10H TEVIN Lisinopril 10 mg 02/11/19 22:15 02/11/19 22:13 Zestril PO 10 mg BID TEVIN Administration Naloxone HCl 0.2 mg 02/11/19 19:55 Narcan IV Q2M PRN Opioid Reversal Trazodone HCl 50 mg 02/11/19 22:15 02/11/19 22:13 Desyrel PO 50 mg HS TEVIN Administration Intake and Output 02/11/19 02/12/19 02/12/19 22:59 06:59 14:59 Other: Voiding Method Toilet Toilet # Voids 2 Weight 66.5 kg 66.5 kg 02/11/19 17:17 02/11/19 17:17 EKG Interpretations (text) Atrial-paced rhythm Assessment and Plan Assessment: #1 episode of syncope, likely secondary to dehydration and hypotension #2 history of sick sinus syndrome, status post pacemaker with no evidence of malfunction #3 paroxysmal atrial fibrillation, anticoagulated on Eliquis #4 hypertension with episodes of hypotension Plan: From cardiology's perspective, we will repeat a BMP this morning. We will decrease lisinopril and discontinue Dyazide. Check orthostatic blood pressures. We will continue to follow the patient and depending on labs, symptoms and blood pressure further recommendations will be made. SCOOP DRIVER note has been reviewed, I agree with a documented findings and plan of care. Patient was seen and examined.
[2019-02-12] MEDS: LISINOPRIL 10 MG TAB PO SCH (10:34)
[2019-02-12 11:27] VITALS: BP 117/73; PULSE 55; RESP 18; TEMP 98.2
--- NOTE | 2019-02-12 15:55 | P.HPIM ---
History of Present Illness 58-year-old pleasant female came in after a syncopal episode patient has been dizzy. Patient is found to have very low blood pressure at blood pressure is extremely low at home as well with systolic going down asked to as low as 70 as per the patient. Patient is found to be in acute renal failure as well secondary to hypotension patient had 1 episode of diarrhea. Patient baseline creatinine is normal and the creatinine went up to 1.25 dysuria 1 bolus of IV fluids with improved symptoms. Patient had a recent echocardiogram which did not show any significant abnormality showed ejection fraction of 65% without any significant valvular abnormalities although there is mild MR and [id number] TR. Patient the syncope secondary to hypotension patient heart rate is in high 40s to low 50s but patient has a pacemaker . The syncope was casted secondary to hypotension because of features diuretic therapy is being discontinued and patient is still bit dizzy because of which I asked her to hold off on her lisinopril tomorrow and can resume it on day after if patient doesn't have any symptoms of hypotension including a dizziness at a lower dose of 10 mg daily patient used to take 20 mg daily. 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 Review of Systems REVIEW OF SYSTEMS: CONSTITUTIONAL: No fever, no malaise, no fatigue. HEENT: No recent visual problems or hearing problems. Denied any sore throat. CARDIOVASCULAR: No chest pain, orthopnea, PND, no palpitation. PULMONARY: No shortness of breath, no cough, no hemoptysis. GASTROINTESTINAL: No diarrhea, no nausea, no vomiting, no abdominal pain. NEUROLOGICAL: No headaches, no weakness, no numbness. HEMATOLOGICAL: Denies any bleeding or petechiae. GENITOURINARY: Denies any burning micturition, frequency, or urgency. MUSCULOSKELETAL/RHEUMATOLOGICAL: Denies any joint pain, swelling, or any muscle pain. ENDOCRINE: Denies any polyuria or polydipsia. The rest of the 14-point review of systems is negative. Past Medical History Past Medical History: Atrial Fibrillation, Hypertension, Sleep Apnea/CPAP/BIPAP, Syncope Additional Past Medical History / Comment(s): vertigo, see Dr Blackburn H & P, possible sleep apnea-recent sleep study-doesn't have results yet History of Any Multi-Drug Resistant Organisms: None Reported Past Surgical History: Back Surgery, Cholecystectomy, Pacemaker Additional Past Surgical History / Comment(s): neck FUSION HAS PLATE, BACK SX-LAMINECTOMY/FUSION, COLONOSCOPY Past Anesthesia/Blood Transfusion Reactions: Previous Problems w/ Anesthesia Additional Past Anesthesia/Blood Transfusion Reaction / Comment(s): had problem w/intubation w/last surgery due to cervical fusion Type of Cardiac Device: Permanent Pacemaker Device Placement Date:: 11/2016 Past Psychological History: Anxiety Additional Psychological History / Comment(s): . Smoking Status: Former smoker Past Alcohol Use History: None Reported Additional Past Alcohol Use History / Comment(s): STARTED SMOKING AGE 16(1977) SMOKED 1 PPD. QUIT 1997 Past Drug Use History: None Reported - Past Family History Mother Family Medical History: Cancer Additional Family Medical History / Comment(s): BREAST CANCER Father Family Medical History: Cancer, Diabetes Mellitus, Hypertension Additional Family Medical History / Comment(s): MELANOMA Medications and Allergies Home Medications Medication Instructions Recorded Confirmed Type Apixaban [Eliquis] 5 mg PO BID 05/30/18 02/11/19 History FLUoxetine HCL [PROzac] 20 mg PO DAILY 05/30/18 02/11/19 History Metoprolol Succinate [Toprol Xl] 50 mg PO HS 05/30/18 02/11/19 History traZODone HCL 50 mg PO HS 05/30/18 02/11/19 History Lisinopril [Zestril] 10 mg PO DAILY #0 02/12/19 02/11/19 Rx Allergies Allergy/AdvReac Type Severity Reaction Status Date / Time No Known Allergies Allergy Verified 02/11/19 21:07 Physical Exam Vitals: Vital Signs Temp Pulse Pulse Pulse Pulse Pulse Resp 02/12/19 11:25 98.2 F 55 L 18 02/12/19 09:09 50 L 53 L 67 02/12/19 07:57 98.1 F 51 L 16 02/12/19 04:00 51 L 16 02/12/19 00:00 50 L 16 02/11/19 21:28 99.1 F 50 L 16 02/11/19 20:30 49 L 18 02/11/19 19:00 50 L 16 02/11/19 18:30 50 L 16 02/11/19 18:00 49 L 20 02/11/19 17:30 49 L 6 L 02/11/19 17:08 97.4 F L 50 L 18 BP BP BP BP BP BP Pulse Ox 02/12/19 11:25 117/73 96 02/12/19 09:09 106/70 109/73 109/68 02/12/19 07:57 116/68 100 02/12/19 04:00 109/63 96 02/12/19 00:00 87/50 98 02/11/19 21:28 130/70 98 02/11/19 20:30 115/70 02/11/19 19:00 116/72 99 02/11/19 18:30 102/66 100 02/11/19 18:00 115/58 100 02/11/19 17:30 120/74 100 02/11/19 17:08 120/75 98 Intake and Output 02/12/19 02/12/19 02/12/19 06:59 14:59 22:59 Intake Total 430 Balance 430 Intake: Oral 230 Other 200 Other: Voiding Method Toilet Toilet # Voids 2 Weight 66.5 kg PHYSICAL EXAMINATION: GENERAL: The patient is alert and oriented x3, not in any acute distress. Well developed, well nourished. HEENT: Pupils are round and equally reacting to light. EOMI. No scleral icterus. No conjunctival pallor. Normocephalic, atraumatic. No pharyngeal erythema. No thyromegaly. CARDIOVASCULAR: S1 and S2 present. No murmurs, rubs, or gallops. PULMONARY: Chest is clear to auscultation, no wheezing or crackles. ABDOMEN: Soft, nontender, nondistended, normoactive bowel sounds. No palpable organomegaly. MUSCULOSKELETAL: No joint swelling or deformity. EXTREMITIES: No cyanosis, clubbing, or pedal edema. NEUROLOGICAL: Gross neurological examination did not reveal any focal deficits. SKIN: No rashes. Results CBC & Chem 7: 02/11/19 17:17 02/12/19 05:53 Labs: Abnormal Lab Results - Last 24 Hours (Table) 02/11/19 02/12/19 Range/Units 17:17 05:53 Chloride 108 H (98-107) mmol/L BUN 20 H (7-17) mg/dL Creatinine 1.25 H 1.12 H (0.52-1.04) mg/dL Glucose 107 H (74-99) mg/dL Total Bilirubin 1.4 H (0.2-1.3) mg/dL Thrombosis Risk Factor Assmnt - Choose All That Apply Any of the Below Risk Factors Present?: Yes Each Factor Represents 1 point: Age 41-60 years Other Risk Factors: No Thrombosis Risk Factor Assessment Total Risk Factor Score: 1 Thrombosis Risk Factor Assessment Level: Low Risk Assessment and Plan Plan: -Syncope secondary to hypotension: Further management as mentioned in history - sinus syndrome patient has a pacemaker and is on metoprolol same dose will be continued at this time -Hypertension management as mentioned above
--- NOTE | 2019-02-12 15:56 | P.DS ---
Providers Date of admission: 02/11/19 19:53 Attending physician: Jaren Gama MD Consults: 02/11/19 19:56 Consult Physician Routine Consulting Provider: [facility] Consult Reason/Comments: syncope, pacer Do you want consulting provider notified?: Yes Primary care physician: Chrissie Castillo [facility] Course: Please refer to my HPI for further details Patient Condition at Discharge: Fair Plan - Discharge Summary Discharge Rx Participant: Yes New Discharge Prescriptions: Continue Apixaban [Eliquis] 5 mg PO BID traZODone HCL 50 mg PO HS FLUoxetine HCL [PROzac] 20 mg PO DAILY Metoprolol Succinate [Toprol Xl] 50 mg PO HS Changed Lisinopril [Zestril] 10 mg PO DAILY #0 Discontinued Triamterene-Hctz 37.5-25Mg [Maxzide 37.5-25] 0.5 tab PO Q48H Discharge Medication List Apixaban [Eliquis] 5 mg PO BID 05/30/18 [History] FLUoxetine HCL [PROzac] 20 mg PO DAILY 05/30/18 [History] Metoprolol Succinate [Toprol Xl] 50 mg PO HS 05/30/18 [History] traZODone HCL 50 mg PO HS 05/30/18 [History] Lisinopril [Zestril] 10 mg PO DAILY #0 02/12/19 [Rx] Follow up Appointment(s)/Referral(s): Jeb Blackburn MD [STAFF PHYSICIAN] - 02/19/19 10:45 am (With [place] CASTILLO) Chrissie Castillo MD [Primary Care Provider] - 3 Days Patient Instructions/Handouts: Syncope (DC) Discharge Disposition: HOME SELF-CARE
[2019-02-12] MEDS ORDERED: LISINOPRIL 5 MG TAB PO SCH (21:00)
[2019-02-12] MEDS ORDERED: METOPROLOL SUCCINATE (ER) 50 MG TAB.ER.24H PO SCH (21:00)
== END 2019-02-12 13:45 | disposition home or self-care (01) ==
LOC: EC 16:58 → 3SCARD 19:53 → 1SOBS 02-12 07:48
PROVIDERS: ADMIT Internal Medicine; ATTEND Internal Medicine
DX: R55 Syncope and collapse (principal); N17.9 Acute kidney failure, unspecified; R19.7 Diarrhea, unspecified; I95.9 Hypotension, unspecified; Z95.0 Presence of cardiac pacemaker; I10 Essential (primary) hypertension; I48.91 Unspecified atrial fibrillation; G47.30 Sleep apnea, unspecified; R00.1 Bradycardia, unspecified; Z87.891 Personal history of nicotine dependence; I34.0 Nonrheumatic mitral (valve) insufficiency; I07.1 Rheumatic tricuspid insufficiency; Z80.3 Family history of malignant neoplasm of breast; Z83.3 Family history of diabetes mellitus; Z82.49 Family history of ischemic heart disease and other diseases of the circulatory system; Z80.8 Family history of malignant neoplasm of other organs or systems; Z79.01 Long term (current) use of anticoagulants; Z79.899 Other long term (current) drug therapy
CPT/HCPCS: 96361 ×3; 96360; 99285; 36415; 93005; 80053; 80048; 83735; 84484 ×2; 85025; 85610; 85730; 71046; G0378 ×2

== ENCOUNTER 2019-09-01 11:51 | Day surgery (SDC) | payer BC ==
[2019-08-31 09:45] VITALS: BMI 22.8
[~2019-09-01 11:51] MED LIST changes: +DEXAMETHASONE SOD PHOSPHATE 10 MG/ML 1 ML VIAL IV ONE; +HYDROmorphone 0.5 MG/0.5 ML SYRINGE IVP PRN; +LACTATED RINGERS 1,000 ML IV SCH; +MIDAZOLAM 2 MG/2 ML VIAL IV PRN; +ONDANSETRON 4 MG/2 ML VIAL IVP ONE; +SCOPOLAMINE 1.5MG/72HR PATCH TRANSDERM ONE; +SODIUM CHLORIDE 0.9% 1,000 ML IV SCH; -ceFAZolin 1,000 MG in SODIUM CHLORIDE 0.9% IRRIGATIO 250 ML IRRIGATION ONE; -ceFAZolin 2 GM in SODIUM CHLORIDE 0.9% 100 ML IVPB ONE
[2019-09-01 12:28] LABS: Basophils % (A) 1 %; Eosinophils # (A) 0.2 k/uL (0-0.7); Eosinophils % (A) 4 %; HCT 37.4 % (34.0-46.0); HGB 12.7 gm/dL (11.4-16.0); Lymphocytes # (A) 1.2 k/uL (1.0-4.8); Lymphocytes % (A) 30 %; MCH 30.4 pg (25.0-35.0); MCHC 33.9 g/dL (31.0-37.0); MCV 89.8 fL (80.0-100.0); Mean Platelet Volume 7.5; Monocytes # (A) 0.3 k/uL (0-1.0); Monocytes % (A) 7 %; Neutrophils # (A) 2.2 k/uL (1.3-7.7); Neutrophils % (A) 56 %; Platelet Count 190 k/uL (150-450); RBC 4.17 m/uL (3.80-5.40); WBC 3.9 k/uL (3.8-10.6)
[2019-09-01 12:32] LABS: African American GFR (CKD) >90 (>60 ml/min/1.73 sqM); Anion Gap 6 mmol/L; Blood Urea Nitrogen 17 mg/dL (7-17); Calcium 9.4 mg/dL (8.4-10.2); Carbon Dioxide 28 mmol/L (22-30); Chloride 105 mmol/L (98-107); Glucose 94 mg/dL (74-99); Non-African American GFR(CKD) 79 (>60 ml/min/1.73 sqM); Potassium 4.2 mmol/L (3.5-5.1); Sodium 139 mmol/L (137-145)
[2019-09-01] MEDS ORDERED: LIDOCAINE 1% INJ 10MG/ML (20 ML MDV) SQ ONE ×2 (13:55→16:06)
[2019-09-01] MEDS ORDERED: LIDOCAINE 1% INJ 10MG/ML (20 ML MDV) ONE ×2 (14:11→16:07)
[2019-09-01] MEDS ORDERED: ISOPROTERENOL 250 MCG/1.25 ML SYR IV ONE (14:20)
[2019-09-01] MEDS ORDERED: fentaNYL (PF) 50 MCG/ML 2 ML AMP ONE (14:20)
[2019-09-01] MEDS ORDERED: MIDAZOLAM 2 MG/2 ML VIAL ONE (14:20)
[2019-09-01] MEDS ORDERED: PROPOFOL 10 MG/ML 20 ML VIAL IV ONE (14:20)
--- NOTE | 2019-09-01 15:29 | P.HPCAR ---
History of Present Illness This is Dr. Blackburn dictating an H/P on this patient The patient was interviewed and examined IMPRESSION / ASSESSMENT: Exercise-induced nonsustained ventricular tachycardia Past history of PAF, sick sinus syndrome status post pacemaker implantation Hypertension PLAN: Diagnostic EP study to see if he has any inducible ventricular tachycardia and possible radiofrequency ablation Continue antihypertensive therapy HPI Patient underwent a stress test in the office. During the stress associated a long run of nonsustained ventricular tachycardia with a right bundle branch block morphology and negatively oriented QRS is in the inferior leads. She also has PVCs of a left bundle branch block morphology She has underlying sick sinus syndrome status post pacemaker implantation Patient denies any fever chills or rigors and is stable for cardiac risk standpoint. She doesn't have an episode of palpitations last week but she was not syncopal or presyncopal with this ROS: No fever chills or rigors, no cough, phlegm or expectoration, no nausea, vomiting or diarrhea, no hematuria, dysuria, no musculoskeletal complaints, no strokes or seizures, no skin lesions. EXAMINATION: Afebrile 98.4F pulse rate in the 50s, blood pressure 1 3408 2 mmHg, pulse ox 97% on room air Breath sounds are clear no rhonchi no crackles Normal heart sounds normal S1 normal S2 no murmurs or gallops. Abdomen is soft nontender Extremity is warm no edema REVIEW OF LABS, ECG & MEDICAL DATA Hemoglobin 12.7 Sodium 139 potassium 4.2 BUN 17 creatinine 0.8 Physical Exam Vitals: Vital Signs Temp Pulse Resp BP Pulse Ox 09/01/19 12:26 98.4 F 53 L 16 134/82 97 Intake and Output 09/01/19 09/01/19 09/01/19 06:59 14:59 22:59 Intake Total 50 Balance 50 Intake: IV 50 Other: Weight 70.6 kg Past Medical History Past Medical History: Sleep Apnea/CPAP/BIPAP, Syncope Additional Past Medical History / Comment(s): hx vertigo, see Dr Blackburn H & P, no cpap used, History of Any Multi-Drug Resistant Organisms: None Reported Past Surgical History: Back Surgery, Cholecystectomy, Pacemaker Additional Past Surgical History / Comment(s): neck FUSION HAS PLATE and screws, S1,L5 fusion-LAMINECTOMY Past Anesthesia/Blood Transfusion Reactions: Previous Problems w/ Anesthesia, Motion Sickness Additional Past Anesthesia/Blood Transfusion Reaction / Comment(s): had cholecystectomy after neck fusion and pt denied ever having diff intubation- Type of Cardiac Device: Permanent Pacemaker Device Placement Date:: 11/2016 Past Psychological History: Anxiety, Depression Additional Psychological History / Comment(s): . Past Alcohol Use History: None Reported Additional Past Alcohol Use History / Comment(s): STARTED SMOKING AGE 16(1976) SMOKED 1 PPD. QUIT 1997 Past Drug Use History: None Reported - Past Family History Mother Family Medical History: Cancer Additional Family Medical History / Comment(s): BREAST CANCER Father Family Medical History: Cancer Additional Family Medical History / Comment(s): MELANOMA Physical Examination Vital Signs Temp Pulse Resp BP Pulse Ox 09/01/19 12:26 98.4 F 53 L 16 134/82 97 Intake and Output 09/01/19 09/01/19 09/01/19 06:59 14:59 22:59 Intake Total 50 Balance 50 Intake: IV 50 Other: Weight 70.6 kg Results 09/01/19 12:10 09/01/19 12:10 CBC 09/01/19 Range/Units 12:10 WBC 3.9 (3.8-10.6) k/uL RBC 4.17 (3.80-5.40) m/uL Hgb 12.7 (11.4-16.0) gm/dL Hct 37.4 (34.0-46.0) % Plt Count 190 (150-450) k/uL Comprehensive Metabolic Panel 09/01/19 Range/Units 12:10 Sodium 139 (137-145) mmol/L Potassium 4.2 (3.5-5.1) mmol/L Chloride 105 (98-107) mmol/L Carbon Dioxide 28 (22-30) mmol/L BUN 17 (7-17) mg/dL Creatinine 0.82 (0.52-1.04) mg/dL Glucose 94 (74-99) mg/dL Calcium 9.4 (8.4-10.2) mg/dL Current Medications Generic Name Dose Route Start Last Admin Trade Name Freq PRN Reason Stop Dose Admin Hydromorphone HCl 0.5 mg 09/01/19 05:59 Dilaudid IVP 09/02/19 06:00 Q5M PRN Pain Control Sodium Chloride 1,000 mls @ 20 mls/hr 09/01/19 05:59 09/01/19 12:13 Saline 0.9% IV 0 mls .Q24H TEVIN Administration Lactated Ringer's 1,000 mls @ 20 mls/hr 09/01/19 05:59 Lactated Ringers IV .Q24H TEVIN Midazolam HCl 2 mg 09/01/19 05:59 Versed IV 09/02/19 06:00 ONCE PRN Anxiety Intake and Output 09/01/19 09/01/19 09/01/19 06:59 14:59 22:59 Intake Total 50 Balance 50 Intake: IV 50 Other: Weight 70.6 kg Patient Weight 09/02/19 06:59 Weight 70.6 kg 09/01/19 12:10 09/01/19 12:10
[2019-09-01] MEDS ORDERED: ACETAMINOPHEN TAB 325 MG TAB PO PRN (16:49)
[2019-09-01] MEDS ORDERED: HYDROcodone/APAP 5-325MG 1 EACH TAB PO PRN (16:49)
--- NOTE | 2019-09-01 16:59 | P.PRLE ---
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
--- NOTE | 2019-09-01 17:19 | P.PCN ---
Preoperative Diagnosis: Dual-chamber pacemaker was interrogated prior to the procedure and reprogrammed to VVI 43 beats a minute A diagnostic EP study is performed Successful slow pathway ablation for management of AV mehnaz reentry was performed Please see dictation separately At the end of the procedure the pacemaker was interrogated and then reprogrammed to DDDR 50-140 BPM
[2019-09-01] MEDS ORDERED: ACETAMINOPHEN IV (For NPO) 1,000 MG in EMPTY BAG 1 BAG IVPB ONE (18:00)
--- NOTE | 2019-09-01 18:23 | PCN ---
PROCEDURE NOTE Sowmya is a 58-year-old female with recurrent palpitations. She has had a documented episode of nonsustained ventricular tachycardia. She was brought in for a diagnostic EP study for recurrent palpitations. The patient was brought to the EP lab in a fasting state. Written informed consent was obtained prior to the procedure. Dual-chamber pacemaker was reprogrammed to VVI 40 beats per minute. Venous sheaths were placed in the right and left femoral veins, and via these diagnostic, mapping and ablation catheters were placed. Initially diagnostic catheters were placed in the high right atrium, His bundle area, coronary sinus and right ventricle. Later mapping and ablation catheters were placed for slow pathway ablation along with a long sheath. Sinus cycle length was 1203 milliseconds, [place] interval 213 milliseconds, QRS 110 milliseconds, QT 489 milliseconds. AH interval 97 milliseconds, HV interval 33 milliseconds. Sinus node recovery times at 600, 500 and 400 milliseconds were 1445, 1445 and 1449 milliseconds. AV node Wenckebach block 530 milliseconds, VA Wenckebach block 570 milliseconds in a mildly sedated state. Ventricular stimulation was performed. Burst stimulation was performed from 400 milliseconds down to 200 milliseconds and extrastimulation after double extrastimuli at [address] was performed in the baseline state. Brief runs of nonsustained ventricular tachycardia were induced but of differing morphologies. These were for 3 to 4 beats only and induced only intermittently. No sustained VT was induced. Isuprel was then started wide open and a full EP study was performed. AV node Wenckebach block improved to 210 milliseconds. Right bundle branch block aberrancy was noted. Burst stimulation was performed. No ventricular tachycardia was induced. Ventricular extrastimulation was performed at [address] No ventricular tachycardia was induced. The retrograde conduction was midline and decremental. However, at a drive train of 400 milliseconds with double extrastimuli at 400/350/350, AV mehnaz re-entry was induced. Ventricular pacing was performed and the tachycardia was entrained. The post-pacing interval was long and it was consistent with AV mehnaz reentry. Septal times were short. Therefore, a long sheath was placed and ablation catheter was placed, non-irrigated. The slow pathway was mapped. The His cloud was mapped and tagged. RF ablation was performed anterior to the coronary sinus and just below it. This resulted in good power of 50 vargas with emergence of junctional rhythm, which then settled down and thereafter there was no further junctional rhythm noted, only sinus rhythm. Three RF ablation lesions were delivered at this site and testing performed once again. Testing was performed on and off Isuprel. High-dose Isuprel was used, and thereafter 5 mcg of Isuprel was used. Burst stimulation was performed in the ventricle. Atrial extrastimulation was performed. Ventricular extrastimulation was performed up to triple extrastimuli. No ventricular tachycardia was induced. No AV mehnaz re-entry was induced. All catheters were then removed at the end of the procedure and patient was transferred back to telemetry. RESULT: Diagnostic EP study revealin. Easily inducible AV mehnaz reentrant tachycardia with double extrastimuli from the RV on Isuprel. 2. Occasional nonsustained ventricular tachycardia up to 3 to 4 beats in the baseline state, but no sustained ventricular tachycardia noted, both on and off Isuprel. On Isuprel, no nonsustained VT inducible. 3. Successful slow pathway ablation for the management of AV mehnaz reentrant tachycardia. The tachycardia was rendered noninducible. PLAN: Reduce the dose of metoprolol to 50 mg p.o. daily. If the blood pressure remains elevated, then the dose of lisinopril can be increased further. MMODL / IJN: [id number] /
[2019-09-01] MEDS ORDERED: lisinopriL 10 MG TAB PO SCH (21:00)
[2019-09-01] MEDS ORDERED: traZODone HCL 50 MG TAB PO SCH (21:00)
[2019-09-01] MEDS ORDERED: FLUoxetine HCL 20 MG CAP PO SCH (21:00)
[2019-09-01] MEDS: APIXABAN 5 MG TAB PO SCH (22:09)
[2019-09-02 01:23] VITALS: PULSE 50
[2019-09-02 06:46] VITALS: BP 119/79; RESP 16; TEMP 97.8
--- NOTE | 2019-09-02 07:38 | P.DS ---
Providers Attending physician: Jeb Blackburn Primary care physician: [facility] Course: Patient is doing well. No dizziness lightheadedness or chest discomfort minimal groin discomfort Rhythm is normal Twelve-lead ECG today shows an atrial paced rhythm normal ST segments On examination afebrile 97.8F pulse rate in the 50s normal respirations Blood pressure 119/79 mmHg Normal heart sounds no murmurs or gallops. Breath sounds are clear no rhonchi no crackles Soft abdomen nontender No hepatojugular reflux No lower extremity edema No swelling in the groins no hematoma Impression Diagnostic EP study for recurrent palpitations Easily inducible AV mehnaz reentrant tachycardia with double extrastimuli from the RV apex, on Isuprel Successful AVNRT ablation, tachycardia rendered noninducible Nonsustained ventricular tachycardia of different morphologies induced occasionally with ventricular extra stimulation off Isuprel No nonsustained ventricular tachycardia seen with extra stimulation or burst stimulation on Isuprel Plan Reduce the dose of metoprolol succinate to 50 mg by mouth daily Reassess blood pressure as an outpatient in 1-2 weeks Continue lisinopril and other medications Low salt diet Plan - Discharge Summary Discharge Rx Participant: Yes New Discharge Prescriptions: New Metoprolol Succinate [Toprol XL] 50 mg PO DAILY #90 tab No Action Apixaban [Eliquis] 5 mg PO BID traZODone HCL 50 mg PO HS FLUoxetine HCL [PROzac] 20 mg PO HS Metoprolol Succinate [Toprol Xl] 100 mg PO DAILY Lisinopril [Zestril] 10 mg PO HS Discharge Medication List Apixaban [Eliquis] 5 mg PO BID 05/30/18 [History] FLUoxetine HCL [PROzac] 20 mg PO HS 05/30/18 [History] Metoprolol Succinate [Toprol Xl] 100 mg PO DAILY 05/30/18 [History] traZODone HCL 50 mg PO HS 05/30/18 [History] Lisinopril [Zestril] 10 mg PO HS 08/31/19 [History] Metoprolol Succinate [Toprol XL] 50 mg PO DAILY #90 tab 09/01/19 [Rx] Follow up Appointment(s)/Referral(s): Jeb Blackburn MD [STAFF PHYSICIAN] - 1 Week Activity/Diet/Wound Care/Special Instructions: Post EP study - Ablation instructions 1. Keep access sites dry for 2 days. 2. No heavy lifting or straining for 2 days. 3. Avoid bending the hips repeatedly for 2 days. 4. You may go up and down stairs slowly Call if the following is noted 1. Bleeding, increasing swelling or pain at the access sites. 2. Increasing chest discomfort, especially upon taking a deep breath. 3. Increasing shortness of breath, at rest or with exertion. 4. Undue cough / phlegm 5. Difficulty or pain while swallowing. 6. Pain or change in color in the extremities. 7. Fever, chills, rigors. 8. Increasing headache or neurologic symptoms. 9. Dizziness, fainting, palpitations Reduce metoprolol succinate to 50 mg daily Continue other current medications Discharge/Stand Alone Forms: Work/School Release / Restrict Discharge Disposition: HOME SELF-CARE
[2019-09-02] MEDS: APIXABAN 5 MG TAB PO SCH (08:49)
== END 2019-09-02 09:51 | disposition home or self-care (01) ==
LOC: CATHEP 11:51 → 3NCARDOBS 16:45 → CATHEP 09-02 09:51
PROVIDERS: ATTEND Internal Medicine Clinical Cardiac Electrophysiology
DX: I47.2 Ventricular tachycardia (principal); I47.1 Supraventricular tachycardia; I48.0 Paroxysmal atrial fibrillation; I49.5 Sick sinus syndrome; I10 Essential (primary) hypertension; G47.33 Obstructive sleep apnea (adult) (pediatric); F41.9 Anxiety disorder, unspecified; F32.9 Major depressive disorder, single episode, unspecified; Z95.0 Presence of cardiac pacemaker; Z90.49 Acquired absence of other specified parts of digestive tract; Z98.1 Arthrodesis status; Z79.01 Long term (current) use of anticoagulants; Z79.899 Other long term (current) drug therapy; Z80.3 Family history of malignant neoplasm of breast; Z80.8 Family history of malignant neoplasm of other organs or systems
CPT/HCPCS: 93623; 93654; 80048; 85025; C1894; C1769 ×2; C1730 ×2; C1732; C1893; J2250; J0690; J2001; J3010; J0131; J2704

== ENCOUNTER 2019-10-27 09:49 | Inpatient (IN) | payer BC ==
[2019-10-27] MEDS ORDERED: NALOXONE 0.4 MG/ML 1 ML VIAL IV PRN (15:54)
[2019-10-27] MEDS ORDERED: ONDANSETRON 4 MG/2 ML VIAL IVP PRN (15:54)
[2019-10-27] MEDS ORDERED: MELATONIN 3 MG TABLET PO PRN (15:54)
[2019-10-27] MEDS ORDERED: ACETAMINOPHEN TAB 325 MG TAB PO PRN (15:54)
[2019-10-27 16:38] LABS: Basophils % (A) 1 %; Eosinophils % (A) 0 %; HGB 12.9 gm/dL (11.4-16.0); Lymphocytes # (A) 1.6 k/uL (1.0-4.8); Lymphocytes % (A) 22 %; MCH 29.5 pg (25.0-35.0); MCV 86.7 fL (80.0-100.0); Mean Platelet Volume 8.1; Monocytes # (A) 0.4 k/uL (0-1.0); Monocytes % (A) 6 %; Neutrophils # (A) 4.9 k/uL (1.3-7.7); Neutrophils % (A) 69 %; Platelet Count 198 k/uL (150-450); RBC 4.38 m/uL (3.80-5.40); RDW 12.8 % (11.5-15.5); WBC 7.1 k/uL (3.8-10.6)
[2019-10-27 16:39] LABS: African American GFR (CKD) >90 (>60 ml/min/1.73 sqM); Anion Gap 10 mmol/L; Blood Urea Nitrogen 7 mg/dL (7-17); Calcium 9.4 mg/dL (8.4-10.2); Carbon Dioxide 21 mmol/L (22-30); Chloride 108 mmol/L (98-107); Glucose 107 mg/dL (74-99); Magnesium 1.8 mg/dL (1.6-2.3); Non-African American GFR(CKD) 80 (>60 ml/min/1.73 sqM); Potassium 3.4 mmol/L (3.5-5.1); Sodium 139 mmol/L (137-145)
[2019-10-27] MEDS ORDERED: Potassium Replacement Protocol 1 EACH MISC MISCELLANE PRN (16:47)
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
[2019-10-27] MEDS: lisinopriL 10 MG TAB PO SCH (21:18)
[2019-10-27] MEDS: FLUoxetine HCL 20 MG CAP PO SCH (21:18)
[2019-10-27] MEDS: APIXABAN 5 MG TAB PO SCH (21:18)
[2019-10-27] MEDS: traZODone HCL 50 MG TAB PO SCH (21:18)
[2019-10-28] MEDS ORDERED: LORazepam 1 MG TAB PO STA (04:54)
[2019-10-28 06:48] LABS: Basophils % (A) 0 %; Eosinophils # (A) 0.1 k/uL (0-0.7); Eosinophils % (A) 1 %; HCT 39.6 % (34.0-46.0); HGB 13.2 gm/dL (11.4-16.0); Lymphocytes # (A) 1.5 k/uL (1.0-4.8); Lymphocytes % (A) 23 %; MCH 29.8 pg (25.0-35.0); MCHC 33.4 g/dL (31.0-37.0); MCV 89.1 fL (80.0-100.0); Mean Platelet Volume 7.9; Monocytes # (A) 0.4 k/uL (0-1.0); Monocytes % (A) 6 %; Neutrophils # (A) 4.4 k/uL (1.3-7.7); Neutrophils % (A) 68 %; Platelet Count 196 k/uL (150-450); RBC 4.44 m/uL (3.80-5.40); WBC 6.4 k/uL (3.8-10.6)
[2019-10-28 07:12] LABS: Calcium 9.1 mg/dL (8.4-10.2); Magnesium 1.7 mg/dL (1.6-2.3)
[2019-10-28 07:38] LABS: Potassium 4.1 mmol/L (3.5-5.1)
[2019-10-28] MEDS ORDERED: Magnesium Replacement Protocol 1 EACH MISC MISCELLANE PRN (08:19)
[2019-10-28] MEDS ORDERED: METOPROLOL SUCCINATE (ER) 50 MG TAB.ER.24H PO SCH (09:00)
[2019-10-28] MEDS: APIXABAN 5 MG TAB PO SCH ×2 (09:06→19:38)
[2019-10-28] MEDS: MAGNESIUM SULFATE-D5W PMX 1 GM in DEXTROSE/WATER 1 100ML.BAG IVPB SCH ×2 (09:07→10:56)
--- NOTE | 2019-10-28 13:00 | ECHOF ---
Referral Reason:abnormal trops MEASUREMENTS -------- HEIGHT: 175.3 cm WEIGHT: 70.3 kg BP: IVSd: 1.2 cm (0.6 - 1.1) LVIDd: 4.1 cm (3.9 - 5.3) LVPWd: 1.4 cm (0.6 - 1.1) IVSs: 1.7 cm LVIDs: 2.6 cm LVPWs: 2.1 cm Ao Diam: 2.7 cm (2.0 - 3.7) AV Cusp: 1.9 cm (1.5 - 2.6) LA Diam: 2.7 cm (2.7 - 3.8) MV EXCURSION: 15.965 mm (> 18.000) MV EF SLOPE: 77 mm/s (70 - 150) EPSS: 0.5 cm MV E Cornelius: 0.53 m/s MV DecT: 277 ms MV A Cornelius: 0.69 m/s MV E/A Ratio: 0.77 RAP: 5.00 mmHg RVSP: 32.45 mmHg FINDINGS -------- Paced rhythm. This was a technically good study. The left ventricular size is normal. There is mild concentric left ventricular hypertrophy. Overa ll left ventricular systolic function is low-normal with, an EF between 50 - 55 %. Left ventricular fillimg pressure cannot be estimated due to paced rhythm. Basal inferior LV wall motion is hypokin etic. The right ventricle is normal in size. The left atrial size is normal. The right atrial size is normal. The aortic valve is trileaflet and appears structurally normal. The mitral valve is normal. Mild mitral regurgitation is present. The tricuspid valve appears structurally normal. Mild tricuspid regurgitation present. Right vent ricular systolic pressure is normal at < 35 mmHg. There is no pulmonic regurgitation present. The aortic root size is normal. Normal inferior vena cava with normal inspiratory collapse consistent with estimated right atrial pre ssure of 5 mmHg. There is no pericardial effusion. CONCLUSIONS -------- 1. Paced rhythm. 2. The left ventricular size is normal. 3. There is mild concentric left ventricular hypertrophy. 4. Overall left ventricular systolic function is low-normal with, an EF between 50 - 55 %. 5. Left ventricular fillimg pressure cannot be estimated due to paced rhythm. 6. Basal inferior LV wall motion is hypokinetic. 7. Mild mitral regurgitation is present. 8. Mild tricuspid regurgitation present. DIGITAL ASSET COORDINATOR: Ana Paula Celis RDCS
[2019-10-28] MEDS ORDERED: METOPROLOL SUCCINATE (ER) 25 MG TAB.ER.24H PO STA (14:10)
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
[2019-10-28] MEDS: FLUoxetine HCL 20 MG CAP PO SCH (19:38)
[2019-10-28] MEDS: traZODone HCL 50 MG TAB PO SCH (19:38)
[2019-10-28] MEDS: lisinopriL 10 MG TAB PO SCH (19:38)
[2019-10-29 06:51] LABS: Basophils # (A) 0.1 k/uL (0-0.2); Basophils % (A) 1 %; Eosinophils # (A) 0.2 k/uL (0-0.7); Eosinophils % (A) 3 %; HCT 41.5 % (34.0-46.0); HGB 13.4 gm/dL (11.4-16.0); Lymphocytes # (A) 1.9 k/uL (1.0-4.8); Lymphocytes % (A) 30 %; MCH 29.2 pg (25.0-35.0); MCHC 32.2 g/dL (31.0-37.0); MCV 90.8 fL (80.0-100.0); Mean Platelet Volume 8.2; Monocytes # (A) 0.3 k/uL (0-1.0); Monocytes % (A) 6 %; Neutrophils # (A) 3.6 k/uL (1.3-7.7); Neutrophils % (A) 58 %; Platelet Count 172 k/uL (150-450); RBC 4.57 m/uL (3.80-5.40); RDW 12.8 % (11.5-15.5); WBC 6.2 k/uL (3.8-10.6)
[2019-10-29 07:26] LABS: Magnesium 2.2 mg/dL (1.6-2.3); Potassium 3.8 mmol/L (3.5-5.1)
[2019-10-29] MEDS: METOPROLOL SUCCINATE (ER) 25 MG TAB.ER.24H PO SCH (08:25)
[2019-10-29] MEDS: APIXABAN 5 MG TAB PO SCH (08:25)
[2019-10-29] MEDS: ASPIRIN 81 MG PO SCH (10:11)
[2019-10-29] MEDS: ATORVASTATIN 40 MG TAB PO SCH (10:11)
[2019-10-29] MEDS ORDERED: ALPRAZolam 0.25 MG TAB PO PRN (11:13)
[2019-10-29] MEDS ORDERED: NITROGLYCERIN SL TABS 0.4 MG TAB SUBLINGUAL PRN (11:13)
[2019-10-29] MEDS ORDERED: ALPRAZolam 0.5 MG TAB PO PRN (11:13)
[2019-10-29] MEDS ORDERED: SODIUM CHLORIDE 0.9% 1,000 ML in EMPTY BAG 1 BAG IV ONE (11:13)
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
[2019-10-29] MEDS: traZODone HCL 50 MG TAB PO SCH (20:38)
[2019-10-29] MEDS: lisinopriL 10 MG TAB PO SCH (20:38)
[2019-10-29] MEDS: FLUoxetine HCL 20 MG CAP PO SCH (20:38)
[2019-10-30] MEDS: ATORVASTATIN 40 MG TAB PO SCH (03:55)
[2019-10-30] MEDS: ASPIRIN 81 MG PO SCH (03:55)
[2019-10-30] MEDS ORDERED: ASPIRIN 325 MG TAB PO ONE (05:00)
[2019-10-30] MEDS ORDERED: ATORVASTATIN 80 MG TAB PO ONE (05:00)
[2019-10-30] MEDS: METOPROLOL SUCCINATE (ER) 25 MG TAB.ER.24H PO SCH (05:49)
[2019-10-30 07:14] LABS: Calcium 8.9 mg/dL (8.4-10.2); Magnesium 1.9 mg/dL (1.6-2.3); Potassium 3.8 mmol/L (3.5-5.1)
[2019-10-30] MEDS ORDERED: IV FLUID CONTINUATION 400 ML IV ONE (07:59)
[2019-10-30] MEDS ORDERED: fentaNYL (PF) 50 MCG/ML 2 ML AMP ONE (08:01)
[2019-10-30] MEDS ORDERED: VERAPAMIL 2.5 MG/ML 2 ML AMP ONE (08:01)
[2019-10-30] MEDS ORDERED: LIDOCAINE 1% INJ 10MG/ML (20 ML MDV) ONE (08:01)
[2019-10-30] MEDS ORDERED: LIDOCAINE 1% INJ 10MG/ML (20 ML MDV) SQ ONE (08:02)
[2019-10-30] MEDS ORDERED: fentaNYL (PF) 50 MCG/ML 2 ML AMP IV ONE (08:02)
[2019-10-30] MEDS ORDERED: VERAPAMIL SYRINGE (5 MG/10 ML) INTRAARTER ONE (08:05)
[2019-10-30] MEDS ORDERED: HEPARIN SODIUM 1,000 UN/ML (10ML VL) ONE (08:11)
[2019-10-30] MEDS ORDERED: HEPARIN SODIUM 1,000 UN/ML (10ML VL) IV ONE (08:13)
[2019-10-30] MEDS ORDERED: IOPAMIDOL-370 125ML BTL INJ ONE (08:21)
[2019-10-30] MEDS ORDERED: RX INFO: IV CONTRAST WAS GIVEN 1 EACH MISC MISCELLANE PRN (08:28)
[2019-10-30] MEDS ORDERED: SODIUM CHLORIDE 0.9% 1,000 ML IV SCH (08:30)
--- NOTE | 2019-10-30 09:30 | CC ---
CARDIAC CATHETERIZATION REPORT PROCEDURE PERFORMED: Cardiac catheterization. HISTORY: Mrs. Arana is a 59-year-old female with known history of arrhythmia, history of permanent pacemaker implantation, hypertension, who presented with symptoms of chest discomfort. Had minimal ST-segment changes inferiorly that resolved with minimal troponin elevation and mild inferobasal hypokinesis. In view of that, she was evaluated by Dr. Blackburn and recommendation made regarding cardiac catheterization. The procedure, its risks and complication were discussed with the patient who is in full understanding and agreement. PROCEDURE: Patient was brought to dental laboratory technician apprentice in a fasting semi-sedated state. After receiving fentanyl and Benadryl and achieving moderate conscious sedated state, using Xylocaine anesthesia and Seldinger technique, a 6-Malagasy sheath was introduced in the right radial artery. Selective right and left coronary angiography performed using 5-Malagasy, 3.5 bend right and left Francoise catheter. Multiple views of the coronary artery including hemiaxial views were obtained. Following that, 5-Malagasy tight pigtail catheter was introduced into the left ventricle and a 30-degree GUEVARA view of the left ventricle was obtained. Following that, catheter and sheath were removed. Hemostasis was obtained with deployment of a TR band. There was no immediate complication. Patient was returned to her room in stable condition. Of note, the patient received a total of 3500 units of intravenous heparin, as well as intra-arterial verapamil. FINDINGS: Left main: This is a short size vessel bifurcating in the left circumflex, left anterior descending artery. Left main coronary artery has no evidence of high-grade stenosis. Left anterior descending artery: This is a large-sized vessel reaching to the apex giving rise to 2 diagonal branches. The second one is large in caliber. The left anterior descending artery as well as branches have no evidence of obstructive coronary artery disease. Left circumflex: This is a nondominant vessel giving rise to 2 obtuse marginal branchs, the first one is large in caliber. The left circumflex as well as branches have no evidence of obstructive coronary artery disease. Right coronary artery: This is a dominant vessel, moderate in caliber, giving rise to a PDA distally. The right coronary artery proximally has 20% to 30% plaque. The rest of the vessel has no high-grade stenosis. LEFT VENTRICULOGRAM: Left ventriculogram was performed in 30-degree GUEVARA view and revealed inferobasal mild hypokinesis. The ejection fraction is estimated at 50-55%. There was 1 to 2+ mitral regurgitation. HEMODYNAMICS: There was no gradient across the aortic valve. The left ventricular end-diastolic pressure was 20-22 mmHg. CONCLUSION: 1. 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 2. Minimally impaired left ventricular systolic function with segmental wall motion abnormality. RECOMMENDATION: In view of finding anatomy, I recommend to continue medical therapy with aggressive risk factor modifications being initiated. It is possible that the patient had a ruptured plaque or vasospastic disease. Those findings and recommendation were discussed with the patient and her family who are in full understanding and agreement. DURATION OF SEDATION: 20 minutes. MMLANIL / IJN: [id number] /
--- NOTE | 2019-10-30 09:36 | LTR ---
10/30/2019 Chrissie Castillo M.D. RE: Sowmya Arana Dear Dr. Castillo: I had the opportunity to perform cardiac catheterization on Mrs. Arana at [facility] on 10/30/2019. A full copy of the procedure note will be forwarded to you. In brief, she was found to have mild obstructive disease involving the proximal right coronary artery with minimally impaired left ventricular systolic function. Based on those findings, I have recommend continued medical therapy with aggressive risk factor modification. Thank you again for allowing me the opportunity to participate in her care. Please feel free to call with any questions. Sincerely yours, Valentino Brock M.D. EMILY / JENNIFER: [id number] /
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
[2019-10-30] MEDS ORDERED: APIXABAN 5 MG TAB PO SCH (21:00)
[2019-10-30] MEDS: APIXABAN 5 MG TAB PO SCH (21:11)
[2019-10-30] MEDS: traZODone HCL 50 MG TAB PO SCH (21:12)
[2019-10-30] MEDS: FLUoxetine HCL 20 MG CAP PO SCH (21:12)
[2019-10-30] MEDS: lisinopriL 10 MG TAB PO SCH (21:13)
[2019-10-31 02:31] VITALS: RESP 18
[2019-10-31] MEDS: ATORVASTATIN 40 MG TAB PO SCH (09:02)
[2019-10-31] MEDS: APIXABAN 5 MG TAB PO SCH (09:02)
[2019-10-31] MEDS: ASPIRIN 81 MG PO SCH (09:02)
[2019-10-31] MEDS: METOPROLOL SUCCINATE (ER) 25 MG TAB.ER.24H PO SCH (09:02)
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
[2019-10-31 12:35] VITALS: BP 138/84; PULSE 51; TEMP 98.4
== END 2019-10-31 15:10 | disposition home or self-care (01) | DRG 287 ==
LOC: 3SCARD 15:09
PROVIDERS: ADMIT Internal Medicine; ATTEND Internal Medicine
PROC: B2111ZZ Fluoroscopy of Multiple Coronary Arteries using Low Osmolar Contrast (ICD-10-PCS; 2019-10-30)
PROC: B2151ZZ Fluoroscopy of Left Heart using Low Osmolar Contrast (ICD-10-PCS; 2019-10-30)
PROC: 4A023N7 Measurement of Cardiac Sampling and Pressure, Left Heart, Percutaneous Approach (ICD-10-PCS; principal; 2019-10-30 09:00)
DX: I47.2 Ventricular tachycardia (principal); I51.81 Takotsubo syndrome; S06.0X9A Concussion with loss of consciousness of unspecified duration, initial encounter; I49.5 Sick sinus syndrome; I48.0 Paroxysmal atrial fibrillation; G47.30 Sleep apnea, unspecified; S00.531A Contusion of lip, initial encounter; E87.6 Hypokalemia; F32.9 Major depressive disorder, single episode, unspecified; R79.89 Other specified abnormal findings of blood chemistry; I10 Essential (primary) hypertension; I25.10 Atherosclerotic heart disease of native coronary artery without angina pectoris; Y04.0XXA Assault by unarmed brawl or fight, initial encounter; Z79.01 Long term (current) use of anticoagulants; Z79.899 Other long term (current) drug therapy; Z90.49 Acquired absence of other specified parts of digestive tract; Z95.0 Presence of cardiac pacemaker; Z98.1 Arthrodesis status; Z87.891 Personal history of nicotine dependence; Z80.3 Family history of malignant neoplasm of breast; Z80.8 Family history of malignant neoplasm of other organs or systems; Z98.890 Other specified postprocedural states
CPT/HCPCS: 80048; 83735; 84484; 85025; 93306; 93458

== ENCOUNTER → 2020-08-04 | Outpatient (CLI) | payer BC ==
--- NOTE | 2020-08-04 08:15 | US ---
EXAMINATION TYPE: US liver DATE OF EXAM: 08/04/2020 COMPARISON: US 04/24/2013 CLINICAL HISTORY: R17 Unspecified jaundice. Pt states recent abnormal liver labs EXAM MEASUREMENTS: Liver Length: 16.8 cm CBD: 0.3 cm Right Kidney: 9.7 x 4.2 x 4.7 cm Pancreas: wnl, tail obscured by overlying bowel gas Liver: Visualized portions appeared wnl Gallbladder: Surgically absent Evidence for sonographic Wise's sign: No CBD: wnl Right Kidney: wnl IMPRESSION: Status post cholecystectomy.
== END | disposition home or self-care (01) ==
LOC: RADUSWWP 06:56
PROVIDERS: ATTEND Family Medicine
DX: R17 Unspecified jaundice (principal); Z90.49 Acquired absence of other specified parts of digestive tract
CPT/HCPCS: 76705

== ENCOUNTER → 2021-07-11 | Outpatient (CLI) | payer BC ==
--- NOTE | 2021-07-11 18:12 | BD ---
EXAMINATION TYPE: Axial Bone Density DATE OF EXAM: 07/11/2021 COMPARISON: NONE CLINICAL HISTORY: 60 years year old Female. ICD-10 CODE: Z78.0 MENOPAUSAL STATE Height: 66.5 IN Weight: 179 LBS RISK FACTORS HISTORY OF: Surgery to Spine L SPINE SURGERY 1995 AND 1997 Active: YES Postmenopausal woman: AGE 55 Lost more than 2 inches in height since high school: YES 3" MEDICATIONS: Additional Medications: PROZAC, LIPITOR, METOPROLOL, ASPIRIN, HEART MEDS EXAM MEASUREMENTS: Bone mineral densitometry was performed using the [employer] System. L SPINE SURGERY 1995 AND 1997 Bone mineral density about the R hip (g/cm2): 0.877 Bone mineral density about the L hip (g/cm2): 0.876 T Score values are as follows: -----R Neck: -1.2 -----L Neck: -1.2 -----R Total: -0.4 -----L Total: -0.7 Bone mineral density BASELINE Bone mineral density about the L Wrist (g/cm2): 0.704 T Score values are as follows: -----Dist. R+U: -0.5 -----Prox. R+U: 0.8 -----Radius total: 0.5 Bone mineral density BASELINE FRAX%s: The graph provided illustrates a 7.6 chance for a major osteoporotic fx and a 0.5 chance for the hips probability for fx in 10 years time. IMPRESSION: Osteopenia (T Score between -2.5 and -1). There is slightly increased risk of fracture and the patient may be considered for treatment. Re-Screen 2-5 years. NOTE: T-SCORE=SD OF THE YOUNG ADULT MEAN.
--- NOTE | 2021-07-12 17:02 | MM ---
Reason for Exam: Screening (asymptomatic). Last mammogram was performed 3 year(s) and 0 month(s) ago. Patient History: Menarche at age 15. First Full-Term at age 28. Postmenopausal. Patient used Hormonal Contraceptives for 5 years. Mother had breast cancer, age 50. Risk Values: Sandee 5 year model risk: 2.7%. NCI Lifetime model risk: 12.4%. Film Views: Bilateral CC views were taken. Bilateral MLO views were taken. Prior Study Comparison: 12/31/2012 Bilateral Screening Mammogram, [facility]. 02/17/2016 Bilateral Screening Mammogram, [facility]. 06/19/2018 Bilateral Screening Mammogram, [facility]. Tissue Density: The breast tissue is heterogeneously dense. This may lower the sensitivity of mammography. Findings: Analyzed By CAD. There is no suspicious group of microcalcifications or new suspicious mass in either breast. Chronic appearing nodularities within the right breast. Overall Assessment: Benign, BI-RAD 2 Management: Screening Mammogram of both breasts in 1 year. A clinical breast exam by your physician is recommended on an annual basis and results should be correlated with mammographic findings. Electronically signed and approved by: Jani Chicas D.O. Radiologis
== END | disposition home or self-care (01) ==
LOC: RADMAMWWP 13:54
PROVIDERS: ATTEND Family Medicine
DX: Z12.31 Encounter for screening mammogram for malignant neoplasm of breast (principal); M85.89 Other specified disorders of bone density and structure, multiple sites; Z78.0 Asymptomatic menopausal state; Z80.3 Family history of malignant neoplasm of breast
CPT/HCPCS: 77063; 77067; 77080

== ENCOUNTER → 2023-04-29 | Outpatient (CLI) | payer BC ==
--- NOTE | 2023-05-01 07:41 | MM ---
Reason for Exam: Screening (asymptomatic). Last mammogram was performed 1 year(s) and 10 month(s) ago. Patient History: Menarche at age 15. First Full-Term at age 28. Postmenopausal. Patient used Hormonal Contraceptives for 5 years. Mother had breast cancer, age 50. Risk Values: Sandee 5 year model risk: 2.8%. NCI Lifetime model risk: 11.7%. Prior Study Comparison: 02/17/2016 Bilateral Screening Mammogram, [facility]. 06/19/2018 Bilateral Screening Mammogram, [facility]. 07/11/2021 Bilateral MG 3D screening mammo w/cad, [facility]. Tissue Density: The breasts are heterogeneously dense, which may obscure small masses. Findings: Analyzed By CAD. Generator device projects over the left pectoralis muscle. There is no suspicious group of microcalcifications or new suspicious mass in either breast. Overall Assessment: Benign, BI-RAD 2 Management: Screening Mammogram of both breasts in 1 year. . Patient should continue monthly self-breast exams. A clinical breast exam by your physician is recommended on an annual basis. This exam should not preclude additional follow-up of suspicious palpable abnormalities. Note on Sandee scores and lifetime risk: 1. A Sandee score greater than 3% is considered moderate risk. If this is the case, consider specialist referral to assess eligibility for a risk reducing agent. 2. If overall lifetime risk for the development of breast cancer is 20% or higher, the patient may qualify for future screening with alternating mammogram and breast MRI. Electronically signed and approved by: Brianna Chatman M.D. Radiologist
== END | disposition home or self-care (01) ==
LOC: RADMAMWWP 06:52
PROVIDERS: ATTEND Family Medicine
DX: Z12.31 Encounter for screening mammogram for malignant neoplasm of breast (principal); Z80.3 Family history of malignant neoplasm of breast; Z78.0 Asymptomatic menopausal state
CPT/HCPCS: 77063; 77067

== ENCOUNTER → 2024-02-26 | Outpatient (CLI) | payer BC ==
--- NOTE | 2024-02-26 08:02 | US ---
EXAMINATION TYPE: US abdomen complete DATE OF EXAM: 02/26/2024 COMPARISON: US(08/04/2020) CLINICAL INDICATION: Female, 63 years old with history of R17 UNSPECIFED JAUNDICE; elevated bilirubin TECHNIQUE: Grayscale and color Doppler imaging of the abdomen was performed. FINDINGS: EXAM MEASUREMENTS: Liver Length: 18.9 cm Gallbladder: Surgically absent CBD: 0.3 cm, color Doppler imaging was utilized to isolate the common bile duct for measurement. Spleen: 10.6 cm Right Kidney: 9.6x4.3x5.2 cm Left Kidney: 9.4x4.7x5.4 cm COLLECTIONS AND ARCHIVES DIRECTOR NOTES: slightly limited due to overlying bowel Pancreas: Tail obscured by overlying bowel gas Liver: Some limited detailed assessment due to patient body habitus. No focal lesion seen. Gallbladder: Surgically absent Evidence for sonographic Wise's sign: No CBD: wnl Spleen: wnl Right Kidney: No hydronephrosis or masses seen Left Kidney: No hydronephrosis or masses seen Upper IVC: wnl at best visualized Abd Aorta: wnl IMPRESSION: 1. Status post cholecystectomy. No biliary ductal dilatation. 2. Mild hepatomegaly at 18.9 cm. [facility], Workstation: [id number], 02/26/2024 8:00 AM
== END | disposition home or self-care (01) ==
LOC: RADUSWWP 06:59
PROVIDERS: ATTEND Family Medicine
DX: R16.0 Hepatomegaly, not elsewhere classified (principal); R17 Unspecified jaundice; Z90.49 Acquired absence of other specified parts of digestive tract
CPT/HCPCS: 76700

== ENCOUNTER → 2024-03-13 | Outpatient (CLI) | payer BC ==
--- NOTE | 2024-03-14 08:49 | XR ---
EXAMINATION TYPE: XR chest 2V DATE OF EXAM: 03/13/2024 4:07 PM COMPARISON: 02/11/2019 CLINICAL INDICATION: Female, 63 years old with history of J44.9 COPD, TECHNIQUE: XR chest 2V view(s) obtained. FINDINGS: The heart size is normal. The pulmonary vasculature is normal. The lungs are clear. IMPRESSION: 1. No acute pulmonary process. [facility], Workstation: [email or web address], 03/14/2024 8:46 AM
== END | disposition home or self-care (01) ==
LOC: RADXRMAIN 15:42
PROVIDERS: ATTEND Family Medicine
DX: J44.9 Chronic obstructive pulmonary disease, unspecified (principal)
CPT/HCPCS: 71046

== ENCOUNTER → 2024-05-05 | Outpatient (CLI) | payer BC ==
--- NOTE | 2024-05-06 08:21 | MM ---
Reason for Exam: Screening (asymptomatic). Last screening mammogram was performed 12 month(s) ago. Patient History: Menarche at age 15. First Full-Term at age 28. Postmenopausal. Patient used Hormonal Contraceptives for 5 years. Mother had breast cancer, age 50. Risk Values: Sandee 5 year model risk: 2.9%. NCI Lifetime model risk: 11.3%. Prior Study Comparison: 06/19/2018 Bilateral Screening Mammogram, [facility]. 07/11/2021 Bilateral MG 3D screening mammo w/cad, [facility]. 04/29/2023 Bilateral MG 3D screening mammo w/cad, [facility]. Tissue Density: The breasts are heterogeneously dense, which may obscure small masses. Analyzed By CAD. Overall Assessment: Benign, BI-RAD 2 Management: Screening Mammogram of both breasts in 1 year. Electronically signed and approved by: Piotr Phillips M.D.
== END | disposition home or self-care (01) ==
LOC: RADMAMWWP 15:07
PROVIDERS: ATTEND Family Medicine
DX: Z12.31 Encounter for screening mammogram for malignant neoplasm of breast (principal); R92.333 Mammographic heterogeneous density, bilateral breasts; Z78.0 Asymptomatic menopausal state; Z80.3 Family history of malignant neoplasm of breast
CPT/HCPCS: 77063; 77067